=== PATIENT | male | born 1925 | race Caucasian/White ===

== ENCOUNTER 2016-06-26 08:39 | Inpatient (IN) | payer OTHER ==
[~2016-06-26] VITALS: Ht 172.7 cm; Wt 77.1 kg
--- NOTE | 2016-06-26 08:51 | NUR ---
89 Y/O MALE BIBA FROM HOME FOR EVAL OF L HIP/L LEG PAIN X 1 WEEK; WORSENING THIS AM. PER PT, HE FELL 1 WEEK AGO ON ICE OUTSIDE HOME. WAS ASSISTED UP BY FAMILY AND HAS BEEN AMBULATORY SINCE. FAMILY STATES "HE TOLD US HE WAS DOING BETTER". PT STATES HE GOT UP TO GO TO THE BATHROOM OVERNIGHT AND THE PAIN WAS WORSE; WAS ABLE TO GET TO/FROM BATHROOM AND THEN CALLED EMS; EMT'S FOUND PT IN BED. PT HAS SIGNIFICANT BRUISING TO ENTIRE L LEG, FROM HIP DOWN INTO THIGH AND AND INTO CALF. PT STATES HE HAS NO PAIN AT REST BUT ONLY IF HE ATTEMPTS TO MOVE. DENIES OTHER COMPLAINTS - DENIES STRIKING HEAD WITH FALL. AWAITING EVAL
--- NOTE | 2016-06-26 08:55 | ED MVC/FALL/TRAUMA COMPLAINT ---
History of Present Illness General Chief Complaint: Fall Stated Complaint: FALL ON ICE LAST WEEK- LEFT HIP PAIN Source: patient, family Exam Limitations: no limitations Allergies Coded Allergies: Penicillins (Intermediate, UNKNOWN 06/26/16) codeine (UNKNOWN 06/26/16) Triage Note: 89 Y/O MALE BIBA FROM HOME FOR EVAL OF L HIP/L LEG PAIN X 1 WEEK; WORSENING THIS AM. PER PT, HE FELL 1 WEEK AGO ON ICE OUTSIDE HOME. WAS ASSISTED UP BY FAMILY AND HAS BEEN AMBULATORY SINCE. FAMILY STATES "HE TOLD US HE WAS DOING BETTER". PT STATES HE GOT UP TO GO TO THE BATHROOM OVERNIGHT AND THE PAIN WAS WORSE; WAS ABLE TO GET TO/FROM BATHROOM AND THEN CALLED EMS; EMT'S FOUND PT IN BED. PT HAS SIGNIFICANT BRUISING TO ENTIRE L LEG, FROM HIP DOWN INTO THIGH AND AND INTO CALF. PT STATES HE HAS NO PAIN AT REST BUT ONLY IF HE ATTEMPTS TO MOVE. DENIES OTHER COMPLAINTS - DENIES STRIKING HEAD WITH FALL. AWAITING EVAL Triage Nurses Notes Reviewed? yes HPI: Patient is an 89-year-old male brought in by ambulance for evaluation of left hip pain. Patient slipped and fell approximately 1.5 weeks ago. Patient has been having pain to the left hip since then. Patient's pain was gradually improving then overnight he was getting out of bed to go the bathroom and pain significantly increased. Pain is moderate at rest, severe with movement. Patient has taken ibuprofen with mild improvement. Patient denies head impact, headache, loss of consciousness, back pain, chest pain, numbness. (EMILY MARTINEZ) Vital Signs & Intake/Output Vital Signs & Intake/Output Vital Signs Date Time Temp Pulse Resp B/P Pulse O2 O2 Flow FiO2 Ox Delivery Rate 06/26 1355 98 Room Air 06/26 1325 96.0 83 20 107/53 97 Room Air 06/26 1114 96.4 69 18 150/72 97 Room Air 06/26 0850 97 Room Air 06/26 0845 96.7 77 18 166/72 96 Room Air Reconcile Medications Alfuzosin HCl (Alfuzosin HCl ER) 10 MG TAB.ER.24H 1 TAB PO DAILY UNKNOWN ( Reported) Aspirin (Aspirin*) 81 MG TAB.CHEW 1 TAB PO DAILY HEART HEALTH (Reported) Atorvastatin Calcium 40 MG TABLET 1 TAB PO DAILY CHOLESTEROL (Reported) Metoprolol Succinate 25 MG TAB 1 TAB PO DAILY HEART (Reported) Warfarin Sodium 5 MG TABLET 1 TAB PO 1700 BLOOD THINNER (Reported) (HERMELINDA LIZ,BENJA Mendoza) Past History Travel History Traveled to [place] past 21 day No Medical History Any Pertinent Medical History? 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 No (EMILY MARTINEZ) Review of Systems Review of Systems Constitutional: Denies: chills, fever. Eyes: Reports: no symptoms. Ears, Nose, Throat, Mouth: Reports: no symptoms. Respiratory: Denies: short of breath. Cardiovascular: Denies: chest pain, syncope. Gastrointestinal/Abdominal: Denies: abdominal pain, nausea, vomiting. Genitourinary: Reports: no symptoms. Musculoskeletal: Reports: see HPI. Denies: neck pain. Skin: Reports: no symptoms. Neurological/Psychological: Denies: headache, numbness. (EMILY MARTINEZ) Physical Exam Physical Exam General Appearance: well developed/nourished, alert, awake Head: atraumatic, normal appearance Eyes: Bilateral: normal appearance, PERRL, EOMI. Ears, Nose, Throat, Mouth: hearing grossly normal, moist mucous membrane Neck: normal inspection, supple, full range of motion, no midline tenderness Respiratory: normal breath sounds, chest non-tender, no respiratory distress, lungs clear Cardiovascular: regular rate/rhythm Peripheral Pulses: 2+ dorsalis pedis (R), 2+ dorsalis pedis (L) Gastrointestinal: soft, non-tender Back: normal inspection, normal range of motion, no vertebral tenderness Extremities: HEMATOMA LEFT LATERAL HIP WITH TENDERNESS. mINIMAL ACTIVE FLEXION. Neurologic/Psych: awake, alert, oriented x 3, normal mood/affect, emergency management system director II-XII nml as tested Skin: warm/dry Core Measures ACS in differential dx? No Severe Sepsis Present: No Septic Shock Present: No (EMILY MARTINEZ) Progress Differential Diagnosis: aoritic dissection, abd injury, C/T/L spine injury, ext injury, ICH, pelvis injury, pnemothorax, spinal cord injury Diagnostic Imaging: Viewed by Me: Radiology Read, CT Scan. Discussed w/RAD: Radiology Read, CT Scan. Radiology Impression: PATIENT: LILLY JONAS PRESENT AGE: 89 PATIENT ACCOUNT NO: [id number] : [birth year] LOCATION: [facility] ORDERING PHYSICIAN: EMILY TOM SERVICE DATE: 06/26/16 EXAM TYPE: CAT - CT PELVIS WO IV CONTRAST EXAMINATION: CT PELVIS WITHOUT CONTRAST CLINICAL INFORMATION: 89-year-old male with severe left hip pain after fall. Evaluate for occult fracture. COMPARISON: Radiographs of the pelvis and left hip from 06/26/2016. CT imaging of the pelvis from 03/23/2010. TECHNIQUE: Helical scanning was performed with submillimeter collimation through the pelvis. Sagittal and coronal multiplanar 2-D reconstructions were obtained. DLP: 1020 mGy-cm FINDINGS: Bones appear diffusely osteoporotic. There is bulky osteophyte/ enthesophyte formation of the visualized lower thoracic spine, multilevel facet arthropathy and disc degeneration. At L4-L5, the disc bulge, facet hypertrophy and ligamentum flavum hypertrophy produce at least moderate central canal stenosis. Syndesmophyte formation is present at the lumbosacral junction and the sacroiliac joints are ankylosed, as well. No evidence of sacral fracture. Pelvic bones have normal alignment. Also, there is normal alignment at each femoroacetabular joint. Small marginal osteophytes are present at each hip. No evidence of femoral fracture or acute acetabular injury. Small bone island is present within the right femoral head. There are no suspicious osseous lesions. A hematoma of heterogeneous attenuation with surrounding soft tissue edema is present within the gluteus medius muscle, as well as in the tissue plane between the gluteus medius and brigid muscles, and overlying the greater trochanter. The hematoma measures up to a maximum of 11 cm AP and 7.5 cm transverse, and it measures at least 12 cm in craniocaudal dimension. This hematoma is probably related to a partial tear of the gluteus medius along its myotendinous junction. Otherwise, the gluteus medius and minimus muscles exhibit bilateral atrophy and partial fatty replacement. Atherosclerotic calcification of the visualized abdominal aorta and iliac and femoral arteries without aneurysm. Small right inguinal hernia contains fat and a trace amount of fluid. Large prostate gland, which protrudes into the bladder base, measures 4.8 x 4 x 5.4 cm. There is diverticulosis of the sigmoid colon without diverticulitis. There is diastases of rectus abdominis muscles at and above the level of the umbilicus. A very small fat-containing umbilical hernia is noted. IMPRESSION: 1. Large hematoma of the left gluteus medius muscle, which extends between the gluteus medius and brigid muscles and overlies the greater trochanter, measures approximately 11 x 7.5 x 12 cm. 2. No evidence of femoral fracture or acetabular injury. 3. Sigmoid colon diverticulosis without diverticulitis. DICTATED BY: LENA ADAMS MD DATE/TIME DICTATED:06/26/161053 ELECTRONIC DATA PROCESSING AUDITOR:DENNIS DATE/TIME TRANSCRIBED:06/26/161053 CONFIDENTIAL, DO NOT COPY WITHOUT APPROPRIATE AUTHORIZATION. <Electronically signed in Other Vendor System> SIGNED BY: LENA ADAMS MD 06/26/16 1112, PATIENT: LILLY JONAS PRESENT AGE: 89 PATIENT ACCOUNT NO: [id number] : [birth year] LOCATION: [facility] ORDERING PHYSICIAN: EMILY TOM SERVICE DATE: 06/26/16 EXAM TYPE: CAT - CT PELVIS WO IV CONTRAST EXAMINATION: CT PELVIS WITHOUT CONTRAST CLINICAL INFORMATION: 89-year-old male with severe left hip pain after fall. Evaluate for occult fracture. COMPARISON: Radiographs of the pelvis and left hip from 06/26/2016. CT imaging of the pelvis from 03/23/2010. TECHNIQUE: Helical scanning was performed with submillimeter collimation through the pelvis. Sagittal and coronal multiplanar 2-D reconstructions were obtained. DLP: 1020 mGy-cm FINDINGS: Bones appear diffusely osteoporotic. There is bulky osteophyte/ enthesophyte formation of the visualized lower thoracic spine, multilevel facet arthropathy and disc degeneration. At L4-L5, the disc bulge, facet hypertrophy and ligamentum flavum hypertrophy produce at least moderate central canal stenosis. Syndesmophyte formation is present at the lumbosacral junction and the sacroiliac joints are ankylosed, as well. No evidence of sacral fracture. Pelvic bones have normal alignment. Also, there is normal alignment at each femoroacetabular joint. Small marginal osteophytes are present at each hip. No evidence of femoral fracture or acute acetabular injury. Small bone island is present within the right femoral head. There are no suspicious osseous lesions. A hematoma of heterogeneous attenuation with surrounding soft tissue edema is present within the gluteus medius muscle, as well as in the tissue plane between the gluteus medius and brigid muscles, and overlying the greater trochanter. The hematoma measures up to a maximum of 11 cm AP and 7.5 cm transverse, and it measures at least 12 cm in craniocaudal dimension. This hematoma is probably related to a partial tear of the gluteus medius along its myotendinous junction. Otherwise, the gluteus medius and minimus muscles exhibit bilateral atrophy and partial fatty replacement. Atherosclerotic calcification of the visualized abdominal aorta and iliac and femoral arteries without aneurysm. Small right inguinal hernia contains fat and a trace amount of fluid. Large prostate gland, which protrudes into the bladder base, measures 4.8 x 4 x 5.4 cm. There is diverticulosis of the sigmoid colon without diverticulitis. There is diastases of rectus abdominis muscles at and above the level of the umbilicus. A very small fat-containing umbilical hernia is noted. IMPRESSION: 1. Large hematoma of the left gluteus medius muscle, which extends between the gluteus medius and brigid muscles and overlies the greater trochanter, measures approximately 11 x 7.5 x 12 cm. 2. No evidence of femoral fracture or acetabular injury. 3. Sigmoid colon diverticulosis without diverticulitis. DICTATED BY: LENA ADAMS MD DATE/TIME DICTATED:06/26/161053 ELECTRONIC DATA PROCESSING AUDITOR:DENNIS DATE/TIME TRANSCRIBED:06/26/161053 CONFIDENTIAL, DO NOT COPY WITHOUT APPROPRIATE AUTHORIZATION. <Electronically signed in Other Vendor System> SIGNED BY: LENA ADAMS MD 06/26/16 1112 (EMILY MARTINEZ) Plan of Care: Orders Procedure Date/time Status CBC WITHOUT DIFFERENTIAL 06/26 1800 Active TYPE & SCREEN (NOT X-MATCH) 06/[address] in observation 06/26 1312 Active PT Evaluate & Treat 06/26 1254 Active Pathway - chart 06/26 1254 Active House Staff 06/26 1254 Active Patient Data 06/26 1254 Active Code Status 06/26 1254 Active MISTAKE 06/26 1235 Active PT Evaluate & Treat 06/26 1129 Active PROTHROMBIN TIME 06/26 0906 Complete COMPREHENSIVE METABOLIC PANEL 06/26 0906 Complete CBC WITHOUT DIFFERENTIAL 06/26 905 Complete Intake & Output 06/26 0848 Active VTE Mechanical Prophylaxis 06/26 UNK Active Activity/Ambulation 06/26 UNK Active MRI-PELVIS WITHOUT ZEINAB 06/26 UNK Active MRI-LT HIP W/O ZEINAB 06/26 UNK Active Current Medications Sig/Sindy Start time Last Medication Dose Stop Time Status Admin Acetaminophen 650 MG Q6P PRN 06/26 1300 AC (Tylenol) Hydromorphone HCl 1 MG Q6P PRN 06/26 1300 AC (Dilaudid) Ibuprofen 600 MG Q6P PRN 06/26 1300 AC (Motrin) Laboratory Tests 06/26/16 1007: Anion Gap 8, Estimated GFR > 60, BUN/Creatinine Ratio 23.8, Glucose 100 H, Calcium 8.7, Total Bilirubin 1.6 H, AST 27, ALT 43, Alkaline Phosphatase 71, Total Protein 6.9, Albumin 3.7, Globulin 3.2, Albumin/Globulin Ratio 1.2, PT 36.5 H, INR 3.52 H, CBC w Diff NO MAN DIFF REQ, RBC 3.21 L, MCV 93.5, MCH 30.8, RDW 15.4 H, MPV 8.2, Gran % 71.4, Lymphocytes % 17.8 L, Monocytes % 8.9, Eosinophils % 1.5, Basophils % 0.4, Absolute Granulocytes 5.5, Absolute Lymphocytes 1.4, Absolute Monocytes 0.7 H, Absolute Eosinophils 0.1, Absolute Basophils 0, PUBS MCHC 33.0 06/26/2016 10:29:46 AM: Patient reevaluated, no significant improvement in pain after 2 mg of IV morphine. Attempted to sit patient up in the stretcher, pain is severe with any flexion at the left hip. CT scan of the pelvis ordered to rule out occult fracture. Discussed with Dr. Salvador. 06/26/2016 12:31:29 PM: Patient comfortable at rest. Thigh remains soft, vital signs stable. Again attempted to sit patient up and ambulate patient. Patient able to sit up to 60. Attempted to stand patient, patient unable to pivot off of stretcher secondary to severe pain. Discussed with Dr. Aguiar to bring patient in for inpatient observation (EMILY MARTINEZ) Departure Departure Time of Disposition: 1250 Disposition: STILL A PATIENT Condition: Stable Clinical Impression Primary Impression: Hip hematoma, left Secondary Impressions: Strain of gluteus medius of left lower extremity, Supratherapeutic INR Referrals: RUTH LIZ,MATT Cortez (PCP/Family) Departure Forms: Customer Survey General Discharge Information Observation Note Spoke With: ROLANDO AGUIAR M.D Physician Advisor Notified: MILA LIZ,ADINA [facility] Patient In: Non-ED OBS Care Area Rationale for Observation: My rational for observation is as follows: Pain control requiring IV medication, physical therapy consultation, serial complete blood cell counts. If any further clinical signs of worsening bleeding or CBC is significantly trending down than orthopedic versus IR consultation, FFP and vitamin K. (EMILY MARTINEZ) PA/SANITATION TECHNICIAN Co-Sign Statement Statement: ED Attending supervision documentation- [X] I saw and evaluated the patient. I have also reviewed all the pertinent lab results and diagnostic results. I agree with the findings and the plan of care as documented in the PA's/SANITATION TECHNICIAN's documentation. [] I have reviewed the ED Record and agree with the PA's/SANITATION TECHNICIAN's documentation. [] Additions or exceptions (if any) to the PAs/SANITATION TECHNICIAN's note and plan are summarized below: [] (HERMELINDA LIZ,BENJA Mendoza)
--- NOTE | 2016-06-26 08:55 | NUR ---
NEGRO ODEN EVAL
[2016-06-26] MEDS ORDERED: ASPIRIN81 M4 PO (09:18)
[2016-06-26] MEDS ORDERED: ALFUZOSIN HCL E10 MG PO (09:18)
[2016-06-26] MEDS ORDERED: METOPROLOL SUCC25 M1 PO (09:19)
[2016-06-26] MEDS ORDERED: WARFARIN SODIUM5 M1 PO (09:19)
[2016-06-26] MEDS ORDERED: ATORVASTATIN CA40 M1 PO (09:19)
--- NOTE | 2016-06-26 09:33 | NUR ---
MED WITH MORPHINE PER JUL. PER NEGRO Miranda, PT HAS RECEIVED MEDICATION IN THE PAST, DOCUMENTED IN HISTORY. PT STATES CODEINE HAS MADE HIM "HALLUCINATE" BUT DENIES OTHER KNOWN ALLERGY. AWAITING XRAY
--- NOTE | 2016-06-26 09:35 | NUR ---
DR SHEN IN FOR EVAL
--- NOTE | 2016-06-26 09:44 | NUR ---
TO RADIOLOGY VIA STRETCHER
--- NOTE | 2016-06-26 09:56 | NUR ---
BACK FROM RADIOLOGY
[2016-06-26 10:16] LABS: ABSOLUTE BASOPHIL COUNT 0 /CUMM (0.0-0.2); ABSOLUTE EOSINOPHIL COUNT 0.1 /CUMM (0.0-0.7); ABSOLUTE GRANULOCYTE CT 5.5 /CUMM (1.4-6.5); ABSOLUTE LYMPH COUNT 1.4 /CUMM (1.2-3.4); ABSOLUTE MONOCYTE COUNT 0.7 /CUMM (0.10-0.60); BASOPHIL % 0.4 % (0.0-2.0); EOSINOPHIL % 1.5 % (0-5); GRANULOCYTE % 71.4 % (42.2-75.2); MEAN CORPUSCULAR HGB 30.8 PG (27.0-31.0); MEAN CORPUSCULAR VOLUME 93.5 FL (80.0-94.0); MEAN PLATELET VOLUME 8.2 FL (7.4-10.4); PLATELET COUNT 153 /CUMM (130-400); RBC DISTRIBUTION WIDTH 15.4 % (11.5-14.5); RED BLOOD CELL CT 3.21 /CUMM (4.70-6.10); WHITE BLOOD CELL COUNT 7.7 /CUMM (4.8-10.8)
--- NOTE | 2016-06-26 10:22 | RADIOLOGY REPORT ---
EXAMINATION: XR HIP, LEFT CLINICAL INFORMATION: Left hip pain and bruising after fall. COMPARISON: None TECHNIQUE: Pelvis, AP view. Left hip, AP and lateral views. FINDINGS: Osseous pelvic ring is intact. There is transitional lumbosacral anatomy with partial lumbarization of S1. The articular cartilage space of each hip is maintained. There is enthesophyte formation in multiple locations, including ischial tuberosities and femoral trochanters. The left femoral head is well-positioned within the intact acetabulum. No evidence of acute femoral fracture, subluxation or focal soft tissue swelling. Peripheral vessels are calcified. IMPRESSION: No acute osseous injury at the left hip.
[2016-06-26 10:23] LABS: PT 36.5 SEC (9.4-12.5)
--- NOTE | 2016-06-26 11:02 | NUR ---
TO CT SCAN VIA STRETCHER
--- NOTE | 2016-06-26 11:12 | CT SCAN REPORT ---
EXAMINATION: CT PELVIS WITHOUT CONTRAST CLINICAL INFORMATION: 89-year-old male with severe left hip pain after fall. Evaluate for occult fracture. COMPARISON: Radiographs of the pelvis and left hip from 06/26/2016. CT imaging of the pelvis from 03/23/2010. TECHNIQUE: Helical scanning was performed with submillimeter collimation through the pelvis. Sagittal and coronal multiplanar 2-D reconstructions were obtained. DLP: 1020 mGy-cm FINDINGS: Bones appear diffusely osteoporotic. There is bulky osteophyte/enthesophyte formation of the visualized lower thoracic spine, multilevel facet arthropathy and disc degeneration. At L4-L5, the disc bulge, facet hypertrophy and ligamentum flavum hypertrophy produce at least moderate central canal stenosis. Syndesmophyte formation is present at the lumbosacral junction and the sacroiliac joints are ankylosed, as well. No evidence of sacral fracture. Pelvic bones have normal alignment. Also, there is normal alignment at each femoroacetabular joint. Small marginal osteophytes are present at each hip. No evidence of femoral fracture or acute acetabular injury. Small bone island is present within the right femoral head. There are no suspicious osseous lesions. A hematoma of heterogeneous attenuation with surrounding soft tissue edema is present within the gluteus medius muscle, as well as in the tissue plane between the gluteus medius and brigid muscles, and overlying the greater trochanter. The hematoma measures up to a maximum of 11 cm AP and 7.5 cm transverse, and it measures at least 12 cm in craniocaudal dimension. This hematoma is probably related to a partial tear of the gluteus medius along its myotendinous junction. Otherwise, the gluteus medius and minimus muscles exhibit bilateral atrophy and partial fatty replacement. Atherosclerotic calcification of the visualized abdominal aorta and iliac and femoral arteries without aneurysm. Small right inguinal hernia contains fat and a trace amount of fluid. Large prostate gland, which protrudes into the bladder base, measures 4.8 x 4 x 5.4 cm. There is diverticulosis of the sigmoid colon without diverticulitis. There is diastases of rectus abdominis muscles at and above the level of the umbilicus. A very small fat-containing umbilical hernia is noted. IMPRESSION: 1. Large hematoma of the left gluteus medius muscle, which extends between the gluteus medius and brigid muscles and overlies the greater trochanter, measures approximately 11 x 7.5 x 12 cm. 2. No evidence of femoral fracture or acetabular injury. 3. Sigmoid colon diverticulosis without diverticulitis.
--- NOTE | 2016-06-26 11:28 | NUR ---
PT MEDICATED WITH ADDITIONAL DOSE OF MORPHINE AND IV OFRIMEV PER ORDERS
--- NOTE | 2016-06-26 12:16 | NUR ---
NEGRO BROWN INTO DISCUSS POC - ANTICIPATE PHYSICAL THERAPY AND ADMISSION
--- NOTE | 2016-06-26 12:51 | History & Physical ---
JENNIE EVANS MD 06/26/16 1251: General Information and HPI MD Statement: I have seen and personally examined LILLY JONAS and documented this H&P. The patient is a 89 year old M who presented with a patient stated chief complaint of [fall and hip pain]. Source of Information: patient, family, old records History of Present Illness: This is an 89-year-old male with a past medical history of hypertension, hyperlipidemia, permanent atrial fibrillation currently on Coumadin therapy, status post coronary artery bypass and S/p pacemaker placement presents to the emergency department for the 4 month back. The patient's eyes and then was back on his feet by his son. He was outside checking his meal when he slipped on the ice and landed on his left hip. The patient did not hit his head. The patient denied any chest pain, palpitations, shortness of prior To the fall. At baseline the patient ambulates with a cane and lives alone at home he gets his help from his family which includes his 5 children who help him with his daily activities including grocery and the daily nutrition. The patient has been tolerating the pain on his hip very well and has not been taking any medications except for [id number] ibuprofen as needed. Today in the morning his pain exacerbated and he was not able to tolerate and decided to come to the ER for further evaluation. In the ER the patient had an hip x-ray along with the CAT scan which showed a hematoma in the left pelvic area. And denied any bruising, or overt bleeding of being on Coumadin. 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 Home Who Do You Live With? spouse Services at Home: None Primary Language: [place] R[place] Smoking Status: Never Smoked ETOH Use: occasional use Illicit Drug Use: denies illicit drug use Living Will? yes Review of Systems Review of Systems Constitutional: Reports: see HPI. Cardiovascular: Denies: see HPI, chest pain, edema, orthopena. Respiratory: Denies: cough, hemoptysis, orthopnea, short of breath, sputum production. GI: Denies: bloating, constipation, diarrhea, distention, bowel incontinence. Genitourinary: Denies: dysuria, frequency, hematuria, hesitation. Musculoskeletal: Reports: joint pain. Denies: back pain, gout. Skin: Denies: dryness, erythema, jaundice, lesions, lymphangitis. Neurological/Psychological: Denies: depressed, emotional problems, numbness, paresthesia, pre-existing deficit. Exam & Diagnostic Data Last 24 Hrs of Vital Signs/I&O Vital Signs Date Time Temp Pulse Resp B/P Pulse O2 O2 Flow FiO2 Ox Delivery Rate 06/26 1355 98 Room Air 06/26 1325 96.0 83 20 107/53 97 Room Air 06/26 1114 96.4 69 18 150/72 97 Room Air 06/26 0850 97 Room Air 06/26 0845 96.7 77 18 166/72 96 Room Air Intake & Output 06/26 1600 06/26 0800 06/26 0000 Intake Total Output Total Balance Patient 170 lb Weight Physical Exam General Appearance Alert, Oriented X3, Cooperative Skin No Rashes, No Breakdown HEENT Atraumatic, PERRLA Neck Supple, No JVD, No thryomegaly Lymphatic Axillary nl, Cervical nl Cardiovascular Normal S1, Normal S2, No Murmurs Lungs Clear to Auscultation, Normal Air Movement Abdomen Soft, No Tenderness, No Hepatospenomegaly Neurological Normal Speech, Strength at 5/5 X4 Ext, Normal Tone, Sensation Intact Extremities left hip swelling Last 24 Hrs of Labs/Nilesh: Laboratory Tests 06/26/16 1007: Anion Gap 8, Estimated GFR > 60, BUN/Creatinine Ratio 23.8, Glucose 100 H, Calcium 8.7, Total Bilirubin 1.6 H, AST 27, ALT 43, Alkaline Phosphatase 71, Total Protein 6.9, Albumin 3.7, Globulin 3.2, Albumin/Globulin Ratio 1.2, PT 36.5 H, INR 3.52 H, CBC w Diff NO MAN DIFF REQ, RBC 3.21 L, MCV 93.5, MCH 30.8, RDW 15.4 H, MPV 8.2, Gran % 71.4, Lymphocytes % 17.8 L, Monocytes % 8.9, Eosinophils % 1.5, Basophils % 0.4, Absolute Granulocytes 5.5, Absolute Lymphocytes 1.4, Absolute Monocytes 0.7 H, Absolute Eosinophils 0.1, Absolute Basophils 0, PUBS MCHC 33.0 Diagnostic Data CXR Results not done Assessment/Plan Assessment: This is an 89-year-old male with a past medical history of hypertension hyperlipidemia coronary artery bypass who presented to the [facility] after having a mechanical fall and ended up having a hematoma on his left hip. Vitals at the time of admission showed a blood pressure of 110/80, respiration rate of 18, saturation of 98% on home Labs shows Hemoglobin of 9.9 and him the crit of 30, Normal basic electrolyte panel INR 3.52 The EKG showed normal sinus rhythm Pelvic CT shows: 1. Large hematoma of the left gluteus medius muscle, which extends between the gluteus medius and brigid muscles and overlies the greater trochanter, measures approximately 11 x 7.5 x 12 cm. 2. No evidence of femoral fracture or acetabular injury. 3. Sigmoid colon diverticulosis without diverticulitis. Assessments Left hip hematoma no underlying fractures seen on the CAT scan Mechanical fall History of hypertension and History of hyperlipidemia Plan Admit to general medicine floor Repeat CBC every 12 with a next one being at 6 PM Blood for type and screen Jamey the INR in the morning and hold Coumadin for now Do MRI of the hip and the pelvis to look for any underlying fracture missed on the CAT scan If fracture positive call orthopedics Physical therapy Pain control The patient might need short-term rehabilitation Patient is full code DVT prophylaxis but currently INR is supratherapeutic As Ranked By This Provider Problem List: 1. Supratherapeutic INR 2. Hip hematoma, left 3. Strain of gluteus medius of left lower extremity Core Measures/Miscellaneous Acute Coronary Syndrome ACS Diagnosis: No Cerebrovascular Accident CVA/TIA Diagnosis: No Congestive Heart Failure CHF Diagnosis: No Venous Thromboembolism VTE Risk Factors: Acute medical illness, Age > 40 VTE Prophylaxis Ordered Inpt: Pharm- Warfarin No Mech VTE prophylaxis d/t: No contraindications No VTE Pharm Prophylaxis d/t: No contraindications VTE Diagnosis: No VTE Type: NONE VTE Confirmed by (Test): NONE Severe Sepsis Severe Sepsis Present: No Septic Shock Septic Shock Present: No Miscellaneous Documentation Attending Case Discussed With: PIPPA HODGE MD Primary Care Physician: MATT MIRANDA MD Patient sees these Specialists none Level of Patient Care: General Medicine PIPPA HODGE MD 06/26/162118: General Information and HPI Allergies/Medications Home Med list Acetaminophen (Tylenol) 325 MG TABLET 650 MG PO Q6P PRN PAIN SCALE 1-3 (MILD) Alfuzosin HCl (Alfuzosin HCl ER) 10 MG TAB.ER.24H 1 TAB PO DAILY UNKNOWN ( Reported) Aspirin (Aspirin*) 81 MG TAB.CHEW 1 TAB PO DAILY HEART HEALTH (Reported) Atorvastatin Calcium 40 MG TABLET 1 TAB PO DAILY CHOLESTEROL (Reported) Docusate Sodium (Colace) 100 MG CAPSULE 1 CAP PO BID PRN constipation Ferrous Sulfate 325 MG (65 MG IRON) TABLET 1 TAB PO DAILY supllement Metoprolol Succinate 25 MG TAB 1 TAB PO DAILY HEART (Reported) Warfarin Sodium 5 MG TABLET 1 TAB PO 1700 BLOOD THINNER (Reported) start taking coumadin after checking INR and when INR less than 2. Attending MD Review Statement Attending Statement Attending MD Statement: examined this patient, discuss w/resident/PA/WASHER AND CRUSHER TENDER, agreed w/resident/PA/WASHER AND CRUSHER TENDER, discussed with family, reviewed EMR data (avail), reviewed images, amended to note Attending Assessment/Plan: The patient is an 89 yo male with h/o atrial fibrillation (on Coumadin), s/p pacemaker, h/o CAD (s/p CABG), HTN, and HL who presented in the ED today with severe left hip pain. He stated that he had fallen on the ice approximately 1 week prior and in last 2 days began experiencing increased left hip/buttock pain to the point where he could not ambulate. In the ED was noted to have a gluteal hematoma. CT showed no fracture, however large hematoma (?11 cm). He stated that his INR is usually therapeutic and was 2.1 on last check (3.5 on admission today ). He denied any dyspnea, chest pain, palpitations, or other symptoms. His H/H had dropped significantly since last Scott bloodwork. Physical Exam: S: T 96.4, P 77, R 18, BP160/72, PO 96% RA HEENT: eyes- PERRLA, EOMI layne- moist mucosa w/o lesions Neck: no adenopathy, bruits or JVD Chest: clear Cor: RRR, nl S1, S2 w/o murm Abd: BS+, soft, NT,-masses or HSM Ext: + large left gluteal/buttock hematoma extending to posterior and lateral thigh with tenderness and decreased ROM left hip, pain on rotation. No peripheral edema, pulses 1+ Neuro: alert & oriented x 3, non-focal exam Labs/Tests- as above. Impression/Plan: #Left Hip Pain- s/p fall approximately [address] shows large gluteal hematoma w/o fracture. Would still have some concern regarding potential fracture of pelvis or hip. Unable to do MRI easily due to pacemaker (patient does not have card with specifics- was placed at [facility]: Dr. Zhang is his Senior Speech Pathologist). Plan: Admit as observation. Treat pain using pain pathway. Bone scan to exclude fracture. PT consult- suspect will need rehab. May consider evacuation of hematoma if increasing. #Acute Blood Loss Anemia- H/H dropped significantly from last Scott value of 14.5/43.8 (now 9.9/30). Concern regarding persistent bleeding. Plan: Follow-up H/H later today. If Hgb below 8 will need transfusion. #Coagulopathy- as above INR slightly supratherapeutic. Plan: Will follow H/H as above and see if persistent bleeding will reverse. No coumadin at present. #CAD/Atrial Fibrillation/S/P Pacer-HR normal and on exam regular. No ischemic symptoms. Plan: Will obtain 12 lead EKG on floor. Follow BP/pulse. Continue Metoprolol. #HL- on Atorvastatin. Plan: Continue Atorvastatin.
--- NOTE | 2016-06-26 13:02 | NUR ---
HOUSE STAFF INTO EVAL
--- NOTE | 2016-06-26 13:49 | NUR ---
DR HOGDE AT THE BEDSIDE
--- NOTE | 2016-06-26 13:59 | NUR ---
PT ADMITTED TO ROOM 210-1
--- NOTE | 2016-06-26 14:06 | NUR ---
REPORT GIVEN TO NURSE ON 2N TRANSPORT CALLED
--- NOTE | 2016-06-26 14:09 | NUR ---
PT DENIES PAIN AT THIS TIME REMAINS AWAKE, ALERT AND CONVERSANT WITHOUT COMPLAINTS. AWAITING TRANSPORT TO . FAMILY AT THE BEDSIDE
[2016-06-26 16:12] VITALS: BP 120/54
[2016-06-26 18:18] LABS: ABSOLUTE BASOPHIL COUNT 0 /CUMM (0.0-0.2); ABSOLUTE EOSINOPHIL COUNT 0.1 /CUMM (0.0-0.7); ABSOLUTE GRANULOCYTE CT 4.4 /CUMM (1.4-6.5); ABSOLUTE LYMPH COUNT 1.2 /CUMM (1.2-3.4); ABSOLUTE MONOCYTE COUNT 0.7 /CUMM (0.10-0.60); BASOPHIL % 0.4 % (0.0-2.0); EOSINOPHIL % 1.8 % (0-5); GRANULOCYTE % 67.7 % (42.2-75.2); HEMATOCRIT 28.5 % (42-52); MEAN CORPUSCULAR HGB 30.9 PG (27.0-31.0); MEAN CORPUSCULAR HGB CONC 33.1 G/DL (33.0-37.0); MEAN CORPUSCULAR VOLUME 93.3 FL (80.0-94.0); MEAN PLATELET VOLUME 8.5 FL (7.4-10.4); PLATELET COUNT 153 /CUMM (130-400); RBC DISTRIBUTION WIDTH 15.4 % (11.5-14.5); RED BLOOD CELL CT 3.05 /CUMM (4.70-6.10); WHITE BLOOD CELL COUNT 6.5 /CUMM (4.8-10.8)
--- NOTE | 2016-06-26 18:18 | Admission Certification ---
Admission Certification Certification Statement - As attending physician, I certify that at the time of - admission, based on clinical presentation, severity of - symptoms, need for further diagnostic testing and - therapeutic interventions, and risk of adverse outcomes - without in-hospital treatment, in my clinical assessment, - this patient requires an acute hospital stay for a minimum - of two nights or longer. I have also considered psychsocial - factors such as support system, advanced age, financial - issues, cognitive issues, and failed out-patient treatments, - past re-admission history, safety of patient, and lack of - compliance as applicable. Specific rationale supporting this admission is: Patient was admitted with severe left hip pain post fall with large gluteal hematoma on CT. INR supratherapeutic. Also drop in H/H. Need to monitor H/H, PT consult, bone scan to exclude fracture.
--- NOTE | 2016-06-26 20:49 | Discharge Summary ---
See Addendum Visit Information Visit Dates Admission Date: 06/26/16 Discharge Date: 07/01/16 Hospital Course Course Attending Physician: PIPPA HODGE MD Primary Care Physician: MATT MIRANDA MD Hospital Course: 89-year-old male with a past medical history of hypertension hyperlipidemia coronary artery bypass,afib on coumadin and subsequently on S/p pacemaker placement, who presented to the [facility] after having a mechanical fall and ended up having a hematoma on his left hip. Vitals at the time of admission showed a blood pressure of 110/80, respiration rate of 18, saturation of 98% on home Labs shows Hemoglobin of 9.9 and him the crit of 30, Normal basic electrolyte panel INR 3.52 The EKG showed normal sinus rhythm Pelvic CT shows: 1. Large hematoma of the left gluteus medius muscle, which extends between the gluteus medius and brigid muscles and overlies the greater trochanter, measures approximately 11 x 7.5 x 12 cm. 2. No evidence of femoral fracture or acetabular injury. 3. Sigmoid colon diverticulosis without diverticulitis. The patient was treated for the following problems in the hospital 1.Acute Hematoma of the left gluteus muscle 2.Mechanical fall 3.H/O Hypertension 4.H/O CAD s/p CABG 5.Pacemker placement s/p atrial fibrillation 6. Acute hospital-induced delirium 7.Positive Lyme titre He is serial CBC were performed and showed No acute decrease in the H/H. The patient did not receive any dose of Coumadin while in the hospital while aspirin was continued The patient needs to be off Coumadin 2 07/03/2016(this was discussed in detail with the patient's project control officer Dr. Zhang as well who agrees with the plan) The patient was instructed to check the INR on 07/03/2016 and is less ledy 2 start taking the Coumadin therapy and follow-up with his primary care physician and project control officer in 1 week The patient had one episode of acute delirium while being in the hospital on his third day of admission. The patient was put on safety net bed and required one- to-one sitter for unsafe ambulation. All the acute triggers for the delirium were ruled out including urinalysis B12 TSH Lyme and RD OK serology. These results the Lyme titer came back positive to 5.68 .Treatment for Neuro lyme was defreered considering the patinet could have false positive results.the results of the Western Blot still pending. No treatment is recommended at this point as per the ID .All results were negative. The patient plan of care and discharge was then changed to 24-hour funeral home assistant rather than STIR and hence was instructed to start on Rozerem 8 mg at bedtime as needed and trazodone 12.5 mg every 6 as needed. The patient has a good family support and hence would be discharged home with 24 -hour home care. Western Blot lyme titre has been sent and is pending. This will need to be f/u. Allergies: Coded Allergies: Penicillins (Intermediate, UNKNOWN 06/26/16) codeine (UNKNOWN 06/26/16) Pertinent Lab Results: Laboratory Tests 06/26 06/26 1747 1007 Chemistry Sodium (137 - 145 mmol/L) 138 Potassium (3.5 - 5.1 mmol/L) 4.3 Chloride (98 - 107 mmol/L) 102 Carbon Dioxide (22 - 30 mmol/L) 28 Anion Gap (5 - 16) 8 BUN (9 - 20 mg/dL) 19 Creatinine (0.7 - 1.2 mg/dL) 0.8 Estimated GFR (>60 ml/min) > 60 BUN/Creatinine Ratio (7 - 25 %) 23.8 Glucose (65 - 99 mg/dL) 100 H Calcium (8.4 - 10.2 mg/dL) 8.7 Total Bilirubin (0.2 - 1.3 mg/dL) 1.6 H AST (17 - 59 U/L) 27 ALT (21 - 72 U/L) 43 Alkaline Phosphatase (< 127 U/L) 71 Total Protein (6.3 - 8.2 g/dL) 6.9 Albumin (3.5 - 5.0 g/dL) 3.7 Globulin (1.9 - 4.2 gm/dL) 3.2 Albumin/Globulin Ratio (1.1 - 2.2 %) 1.2 Coagulation PT (9.4 - 12.5 SEC) 36.5 H INR (0.90 - 1.17) 3.52 H Hematology CBC w Diff NO MAN DIFF REQ NO MAN DIFF REQ WBC (4.8 - 10.8 /CUMM) 6.5 7.7 RBC (4.70 - 6.10 /CUMM) 3.05 L 3.21 L Hgb (14.0 - 18.0 G/DL) 9.4 L 9.9 L Hct (42 - 52 %) 28.5 L 30.0 L MCV (80.0 - 94.0 FL) 93.3 93.5 MCH (27.0 - 31.0 PG) 30.9 30.8 RDW (11.5 - 14.5 %) 15.4 H 15.4 H Plt Count (130 - 400 /CUMM) 153 153 MPV (7.4 - 10.4 FL) 8.5 8.2 Gran % (42.2 - 75.2 %) 67.7 71.4 Lymphocytes % (20.5 - 51.1 %) 18.8 L 17.8 L Monocytes % (1.7 - 9.3 %) 11.3 H 8.9 Eosinophils % (0 - 5 %) 1.8 1.5 Basophils % (0.0 - 2.0 %) 0.4 0.4 Absolute Granulocytes (1.4 - 6.5 /CUMM) 4.4 5.5 Absolute Lymphocytes (1.2 - 3.4 /CUMM) 1.2 1.4 Absolute Monocytes (0.10 - 0.60 /CUMM) 0.7 H 0.7 H Absolute Eosinophils (0.0 - 0.7 /CUMM) 0.1 0.1 Absolute Basophils (0.0 - 0.2 /CUMM) 0 0 PUBS MCHC (33.0 - 37.0 G/DL) 33.1 33.0 Disposition Summary Disposition Principal Diagnosis: Mechaincal fall Additional Diagnosis: Acute hemotoma of the Left gluteus muscle H/O CABG h/O AFIB Acute delirium Discharge Disposition: home health services Discharge Instructions General Discharge Information Code Status: Full Code Patient's Diet: As tolerated Patient's Activity: As tolerated Follow-Up Instructions/Appts: F/u with PCP in1 week of discharge Medications at Discharge Discharge Medications: Continue taking these medications: Alfuzosin HCl (Alfuzosin HCl ER) 10 MG TAB.ER.24H 1 Tablet ORAL DAILY Qty = 90 Comments: NOT GIVEN IN HOSPITAL Aspirin (Aspirin*) 81 MG TAB.CHEW 1 Tablet ORAL DAILY Comments: NOT GIVEN IN HOSPITAL Atorvastatin Calcium (Atorvastatin Calcium) 40 MG TABLET 1 Tablet ORAL DAILY Comments: Last Taken:07/02/16 Time:0930AM Metoprolol Succinate (Metoprolol Succinate) 25 MG TAB 1 Tablet ORAL DAILY Qty = 90 Comments: Last Taken:07/02/16 Time:0930AM Warfarin Sodium (Warfarin Sodium) 5 MG TABLET 1 Tablet ORAL 5 PM Qty = 90 Instructions: start taking coumadin after checking INR and when INR less than 2. Comments: NOT GIVEN IN HOSPITAL Start taking the following new medications: Acetaminophen (Tylenol) 325 MG TABLET 650 Milligram ORAL EVERY SIX HOURS NEEDED as needed for PAIN SCALE 1-3 ( MILD) Qty = 30 No Refills Comments: Last Taken:06/28/16 Time:1130AM Trazodone HCl (Trazodone HCl) 50 MG TABLET 12.5 Milligram ORAL EVERY 6 HOURS NEEDED as needed for ANXIETY Qty = 30 No Refills Comments: Last Taken:07/01/16 Time:MIDNIGHT Ramelteon (Rozerem) 8 MG TABLET 8 Milligram ORAL AT BEDTIME as needed for sleep Qty = 30 No Refills Comments: Last Taken:07/01/16 Time:930PM Ferrous Sulfate (Ferrous Sulfate) 325 MG (65 MG IRON) TABLET 1 Tablet ORAL DAILY Qty = 30 No Refills Comments: Last Taken:07/02/16 Time:0930AM Docusate Sodium (Colace) 100 MG CAPSULE 1 Capsule ORAL TWICE DAILY as needed for constipation Qty = 30 No Refills Comments: Last Taken:06/28/16 Time:1130AM Copies To: RUTH LIZ,MATT Cortez Attending MD Review Statement Documenting Attending: PIPPA HODGE MD Other Findings: The patient was seen and discussed with house staff, case management and family. Will discharge home today with 24 hour care. Mental status was significantly improved at time of discharge. Await Lyme Western Blot.
[2016-06-26 23:41] VITALS: BP 134/80
--- NOTE | 2016-06-27 04:59 | PN- Housestaff ---
NATHAN LIZ,JENNIE 06/27/16 0459: Subjective Follow-up For: Left hip hematoma Complaints: no complaints Subjective: Patient was annoyed in the morning feels as if he is being"imprisonment". Still complains of pain in the left leg Review of Systems Constitutional: Reports: see HPI. Objective Last 24 Hrs of Vital Signs/I&O Vital Signs Date Time Temp Pulse Resp B/P Pulse O2 O2 Flow FiO2 Ox Delivery Rate 06/27 0812 98.3 100 20 140/82 95 Room Air 06/26 2341 97.6 99 19 134/80 93 Room Air 06/26 1612 97.8 75 20 120/54 97 06/26 1355 98 Room Air 06/26 1325 96.0 83 20 107/53 97 Room Air 06/26 1114 96.4 69 18 150/72 97 Room Air 06/26 0850 97 Room Air 06/26 0845 96.7 77 18 166/72 96 Room Air Intake & Output 06/27 1600 06/27 0800 06/27 0000 Intake Total Output Total 350 Balance -350 Output, Urine 350 Physical Exam General Appearance: Alert, Oriented X3 Skin: No Rashes, No Breakdown HEENT: Atraumatic, PERRLA Neck: No thryomegaly Cardiovascular: Normal S1, Normal S2, No Murmurs Lungs: Clear to Auscultation, Normal Air Movement Extremities: left lateral leg swelling Current Medications: Current Medications Sig/Sindy Start time Last Medication Dose Route Stop Time Status Admin Acetaminophen 650 MG Q6P PRN 06/26 1300 AC PO Acetaminophen 0 .STK-MED ONE 06/26 1126 DC IV Acetaminophen 0 .STK-MED ONE 06/26 1114 DC IV Acetaminophen 1,000 MG ONCE ONE 06/26 1030 DC 06/26 N/A 1 UNIT IV 06/26 1044 1128 Atorvastatin Calcium 40 MG DAILY 06/27 1000 AC PO Hydromorphone HCl 1 MG Q6P PRN 06/26 1300 AC 06/27 IV 0029 Ibuprofen 600 MG Q6P PRN 06/26 1300 AC PO Melatonin 3 MG AT BEDTIME 06/26 2200 AC 06/26 PO 205 Metoprolol Succinate 25 MG DAILY 06/27 1000 AC PO Morphine Sulfate 0 .STK-MED ONE 06/26 1115 DC .ROUTE Morphine Sulfate 2 MG ONCE ONE 06/26 1030 DC 06/26 IV 06/26 1031 1127 Morphine Sulfate 0 .STK-MED ONE 06/26 0828 DC .ROUTE Morphine Sulfate 2 MG ONCE ONE 06/26 0815 DC 06/26 IV 06/26 0916 0932 Last 24 Hrs of Lab/Nilesh Results Last 24 Hrs of Labs/Mics: Laboratory Tests 06/27/16 0638: PT 30.1 H, INR 2.90 H, CBC w Diff NO MAN DIFF REQ, RBC 3.05 L, MCV 92.9, MCH 31.5 H, RDW 15.5 H, MPV 9.0, Gran % 69.3, Lymphocytes % 18.8 L, Monocytes % 10.2 H, Eosinophils % 1.5, Basophils % 0.2, Absolute Granulocytes 5.1, Absolute Lymphocytes 1.4, Absolute Monocytes 0.8 H, Absolute Eosinophils 0.1, Absolute Basophils 0, PUBS MCHC 34.0 06/26/16 1747: CBC w Diff NO MAN DIFF REQ, RBC 3.05 L, MCV 93.3, MCH 30.9, RDW 15.4 H, MPV 8.5, Gran % 67.7, Lymphocytes % 18.8 L, Monocytes % 11.3 H, Eosinophils % 1.8, Basophils % 0.4, Absolute Granulocytes 4.4, Absolute Lymphocytes 1.2, Absolute Monocytes 0.7 H, Absolute Eosinophils 0.1, Absolute Basophils 0, PUBS MCHC 33.1 06/26/16 1007: Anion Gap 8, Estimated GFR > 60, BUN/Creatinine Ratio 23.8, Glucose 100 H, Calcium 8.7, Total Bilirubin 1.6 H, AST 27, ALT 43, Alkaline Phosphatase 71, Total Protein 6.9, Albumin 3.7, Globulin 3.2, Albumin/Globulin Ratio 1.2, PT 36.5 H, INR 3.52 H, CBC w Diff NO MAN DIFF REQ, RBC 3.21 L, MCV 93.5, MCH 30.8, RDW 15.4 H, MPV 8.2, Gran % 71.4, Lymphocytes % 17.8 L, Monocytes % 8.9, Eosinophils % 1.5, Basophils % 0.4, Absolute Granulocytes 5.5, Absolute Lymphocytes 1.4, Absolute Monocytes 0.7 H, Absolute Eosinophils 0.1, Absolute Basophils 0, PUBS MCHC 33.0 Assessment/Plan Assessment: This is an 89-year-old male with a past medical history of hypertension, hyperlipidemia, status post CABG, atrial fibrillation currently on Coumadin therapy who presented to the [facility] status post mechanical fall and which ended up having left leg hematoma Assessment 1. Mechanical fall status post left leg gluteus hematoma 2. History of hypertension 3. History of coronary artery disease status post CABG 4.Suoprattherapeutic INR Plan: Will c/w pain control as needed DC DILAUDID as its worseing his Confusion PO Tramadol for pain control PT eval for final disposition Refusing Nuclear Scan for thge suspicion of FX C/w holding Coumadin Possible discharge later today depending on the results of the nuclear scan and and the final disposition, that is STIR versus 24-hour home care, the latter , which the patient is opting for. Problem List: 1. Supratherapeutic INR 2. Hip hematoma, left Pain Ratin Pain Location: HIP pain Pain Goal: Pain 4 or less Pain Plan: po Tylnol Tomorrow's Labs & Rationales: none PIPPA HODGE MD 06/27/16 1628: Attending MD Review Statement Attending Statement Attending MD Statement: examined this patient, discuss w/resident/PA/CLEAN UP HELPER BANQUET, agreed w/resident/PA/CLEAN UP HELPER BANQUET, discussed with family, reviewed EMR data (avail), discussed with nursing, discussed with case mgmt, reviewed images, amended to note Attending Assessment/Plan: The patient was seen and discussed with house staff. Bone scan negative for fracture. Will continue to hold Coumadin x 1 week (OK as per hand i blocker). Plan rehab placement. Add iron/stool regimen for anemia. Continue PT.
[2016-06-27 07:59] LABS: ABSOLUTE BASOPHIL COUNT 0 /CUMM (0.0-0.2); ABSOLUTE EOSINOPHIL COUNT 0.1 /CUMM (0.0-0.7); ABSOLUTE GRANULOCYTE CT 5.1 /CUMM (1.4-6.5); ABSOLUTE LYMPH COUNT 1.4 /CUMM (1.2-3.4); ABSOLUTE MONOCYTE COUNT 0.8 /CUMM (0.10-0.60); BASOPHIL % 0.2 % (0.0-2.0); EOSINOPHIL % 1.5 % (0-5); GRANULOCYTE % 69.3 % (42.2-75.2); HEMATOCRIT 28.3 % (42-52); MEAN CORPUSCULAR HGB 31.5 PG (27.0-31.0); MEAN CORPUSCULAR VOLUME 92.9 FL (80.0-94.0); PLATELET COUNT 165 /CUMM (130-400); RBC DISTRIBUTION WIDTH 15.5 % (11.5-14.5); RED BLOOD CELL CT 3.05 /CUMM (4.70-6.10); WHITE BLOOD CELL COUNT 7.4 /CUMM (4.8-10.8)
[2016-06-27 08:12] VITALS: BP 140/82
[2016-06-27 08:16] LABS: PT 30.1 SEC (9.4-12.5)
[2016-06-27] MEDS ORDERED: TYLENOL325 M1 PO (11:36)
--- NOTE | 2016-06-27 11:38 | Patient Discharge Instructions ---
Discharge Instructions General Discharge Information You were seen/treated for: left leg hematoma You had these procedures: none Special Instructions: please f/u with your pcp in1 week please f/u with PT therapy recommendations. Pleas continue holding Coumadin till 07/03 and then resume after checking INR. If less than 2 can resume it. Acute Coronary Syndrome Inclusion Criteria At DC or during hospital stay patient has or had the following: ACS DIAGNOSIS No Discharge Core Measures Meds if any: Prescribed or Continued at Discharge Meds if any: NOT Prescribed or Continued at Discharge Congestive Heart Failure Inclusion Criteria At DC or during hospital stay patient has or had the following: CHF DIAGNOSIS No Discharge Core Measures Meds if any: Prescribed or Continued at Discharge Meds if any: NOT Prescribed or Continued at Discharge Cerebrovascular accident Inclusion Criteria At DC or during hospital stay patient has or had the following: CVA/TIA Diagnosis No Discharge Core Measures Meds if any: Prescribed or Continued at Discharge Meds if any: NOT Prescribed or Continued at Discharge Venous thromboembolism Inclusion Criteria VTE Diagnosis No VTE Type NONE VTE Confirmed by (Test) NONE Discharge Core Measures - Per Current guidelines, there needs to be overlap - treatment for the first 5 days of Warfarin therapy. - If discharged on Warfarin prior to 5 days of - overlap therapy, the patient will need to be - assessed for post discharge needs including - *Post discharge parental anticoagulation - *Warfarin and/or parental anticoagulation education - *Follow up date to check INR post discharge At least 5 days overlap therapy as Inpatient No Meds if any: Prescribed or Continued at Discharge Note: Overlap Therapy is Warfarin and Anticoagulant Meds if any: NOT Prescribed or Continued at Discharge
[2016-06-27] MEDS ORDERED: COLACE100 M1 PO (12:28)
[2016-06-27] MEDS ORDERED: FERROUS SULFAT325 M3 PO (12:28)
--- NOTE | 2016-06-27 14:47 | NUCLEAR MEDICINE REPORT ---
EXAMINATION: NM BONE SCAN 3 PHASE CLINICAL INFORMATION: Left hip fracture. Pain. COMPARISON: No previous bone scan is available for comparison. Radiographs of the left hip dated 06/26/[address] scan of the pelvis on the same date are available for comparison. TECHNIQUE: Initial rapid sequence images were obtained over the hips and proximal thighs in the anterior and posterior projections during the bolus injection of 26.3 mCi Tc-99m HDP. Static images of the pelvis and proximal thighs were then obtained 2.75 hours post injection. FINDINGS: Initial rapid sequence images show bilaterally symmetrical flow in the hips and proximal thighs. The blood pool images obtained immediately following the flow study show an ill-defined region of slightly increased soft tissue activity laterally in the proximal left thigh which is just barely perceptible. The delayed static images show minimally increased activity in the greater femoral trochanters bilaterally. No other foci of abnormal activity are present in either hip. There is some increased soft tissue activity in the proximal left thigh and lower left buttock compared to the contralateral side, but this is just barely perceptible. The urinary bladder is well visualized but the kidneys are outside the [id number] and cannot be evaluated. IMPRESSION: No evidence of a recent fracture at any visualized site. Minimal soft tissue activity in the soft tissues adjacent to the left hip is nonspecific but may be due to some soft tissue injury or a myositis in this region.
[2016-06-27 16:45] VITALS: BP 122/58
[2016-06-28 00:39] VITALS: BP 114/58
[2016-06-28 08:17] VITALS: BP 125/55
[2016-06-28 08:22] LABS: ABSOLUTE BASOPHIL COUNT 0 /CUMM (0.0-0.2); ABSOLUTE EOSINOPHIL COUNT 0.2 /CUMM (0.0-0.7); ABSOLUTE GRANULOCYTE CT 4.7 /CUMM (1.4-6.5); ABSOLUTE LYMPH COUNT 1.9 /CUMM (1.2-3.4); ABSOLUTE MONOCYTE COUNT 0.9 /CUMM (0.10-0.60); BASOPHIL % 0.3 % (0.0-2.0); EOSINOPHIL % 2.2 % (0-5); GRANULOCYTE % 60.9 % (42.2-75.2); MEAN CORPUSCULAR HGB 31.3 PG (27.0-31.0); MEAN CORPUSCULAR HGB CONC 33.5 G/DL (33.0-37.0); MEAN CORPUSCULAR VOLUME 93.4 FL (80.0-94.0); MEAN PLATELET VOLUME 8.8 FL (7.4-10.4); PLATELET COUNT 162 /CUMM (130-400); RBC DISTRIBUTION WIDTH 16.1 % (11.5-14.5); RED BLOOD CELL CT 3.11 /CUMM (4.70-6.10); WHITE BLOOD CELL COUNT 7.7 /CUMM (4.8-10.8)
--- NOTE | 2016-06-28 08:25 | PN- Housestaff ---
MUNIR LIZ,LUIS EDUARDO 06/28/16 0823: Subjective Follow-up For: Left hip hematoma Complaints: pain scale (0-10) Subjective: I saw and examined the patient today morning He is feeling better. lying on the bed, denies any pain. Unable to walk around. No fevers, chills. Review of Systems Constitutional: Reports: see HPI. Comments: ROS negative except the above. Objective Last 24 Hrs of Vital Signs/I&O Vital Signs Date Time Temp Pulse Resp B/P Pulse O2 O2 Flow FiO2 Ox Delivery Rate 06/28 0817 97.7 83 20 125/55 94 Room Air 06/28 0039 97.7 81 20 114/58 95 06/27 1645 97.7 78 20 122/58 95 Room Air 06/27 0857 100 140/82 Intake & Output 06/28 1600 06/28 0800 06/28 0000 Intake Total 240 120 Output Total Balance 240 120 Intake, Oral 240 120 Physical Exam General Appearance: Alert, Oriented X3, Cooperative Skin: No Rashes, No Breakdown HEENT: Atraumatic, PERRLA, EOMI Neck: Supple Cardiovascular: Normal S1, Normal S2, sysotlic murmur present Lungs: Clear to Auscultation, Normal Air Movement Abdomen: Normal Bowel Sounds, Soft, No Tenderness Neurological: Normal Tone, Sensation Intact Extremities: No Clubbing, No Cyanosis, No Edema Current Medications: Current Medications Sig/Sindy Start time Last Medication Dose Route Stop Time Status Admin Acetaminophen 650 MG .STK-MED ONE 06/27 1641 DC PO 06/27 1642 Acetaminophen 650 MG .STK-MED ONE 06/27 0853 DC PO 06/27 0854 Acetaminophen 650 MG Q6P PRN 06/26 1300 AC 06/27 PO 1836 Atorvastatin Calcium 40 MG DAILY 06/27 1000 AC 06/27 PO 0856 Docusate Sodium 100 MG DAILY NEEDED PRN 06/27 1545 AC PO Ferrous Sulfate 325 MG DAILY 06/27 1541 AC 06/27 PO 1835 Hydromorphone HCl 1 MG Q6P PRN 06/26 1300 DC 06/27 IV 0029 Ibuprofen 600 MG Q6P PRN 06/26 1300 DC PO Melatonin 3 MG AT BEDTIME 06/26 2200 AC 06/27 PO 2148 Metoprolol Succinate 25 MG DAILY 06/27 1000 AC 06/27 PO 0857 Naproxen 500 MG Q8 06/27 1400 CAN PO Patient Medication 1 ED ONE ONE 06/27 1400 DC 06/27 Teaching ED 06/27 1401 1835 Senna/Docusate Sodium 2 TAB DAILY PRN 06/27 1545 AC PO Tramadol HCl 50 MG Q6 PRN 06/27 0915 DC PO Last 24 Hrs of Lab/Nilesh Results Last 24 Hrs of Labs/Mics: Laboratory Tests 06/28/16 0700: PT Pending, INR Pending, CBC w Diff Pending, WBC Pending, RBC Pending, Hgb Pending, Hct Pending, MCV Pending, MCH Pending, RDW Pending, Plt Count Pending, MPV Pending, PUBS MCHC Pending Lines/Diet/Fluids Lines: peripheral lines Assessment/Plan Assessment: This is an 89-year-old male with a past medical history of hypertension, hyperlipidemia, status post CABG, atrial fibrillation currently on Coumadin therapy who presented to the [facility] status post mechanical fall and which ended up having left leg hematoma Assessment 1. Mechanical fall status post left leg gluteus hematoma 2. History of hypertension 3. History of coronary artery disease status post CABG 4.Suoprattherapeutic INR Plan: Will c/w pain control as needed. DC DILAUDID as its worseing his Confusion. PO Tramadol for pain control if needed. PT eval - STR. Refusing Nuclear Scan for thge suspicion of FX C/w holding Coumadin - INR today is 2.03 Problem List: 1. Supratherapeutic INR 2. Hip hematoma, left Pain Ratin Pain Location: Hip Pain Goal: Pain 4 or less Pain Plan: Tramadol Tomorrow's Labs & Rationales: CBC to monitor H&H in the setting of hematoma' PT to monitor INR MAGDALENA LIZ,[facility] 06/28/16 1319: Attending MD Review Statement Attending Statement Attending MD Statement: examined this patient, discuss w/resident/PA/FOOD QUALITY TESTER, agreed w/resident/PA/FOOD QUALITY TESTER, reviewed EMR data (avail), discussed with nursing, reviewed images Attending Assessment/Plan: Patient was seen and examined on the bedside and plan discussed with the house staff. Coumadin continued to be on hold for 1 week as per architect naval and the plan is to discharge the patient to the short-term rehabilitation on Thursday.
[2016-06-28 08:26] LABS: PT 21.2 SEC (9.4-12.5)
[2016-06-28 16:32] VITALS: BP 104/70
[2016-06-29 01:26] VITALS: BP 112/76
--- NOTE | 2016-06-29 06:42 | NUR ---
LATE ENTRY NURSING NOTE: AT 0450 THE BED ALARM FOR PT RM [id number] WENT OFF. THIS RN WAS IN THE PROCESS OF WALKING IN THE ROOM. UPON ENTERING THE ROOM THE PT WAS ON THE FLOOR KNEELING ON HIS LEFT LEG AND HOLDING ONTO THE BED SIDERAIL WITH HIS RIGHT. UNDER THE PT FOOT WAS HIS BED SHEET AND BLANKET. WHEN ASKED WHAT HAPPENED THE PT STATED "I SLIPPED ON THE ICE". VS:158/82, 98, 97.3, 96% ON RA AND FINGERSTICK WAS 115. THE PT WAS HELPED BACK INTO BED AND WAS VERY CONFUSED TO WHAT JUST HAPPENED. THE NIGHT [place] [employer] WAS PRESENT AT THIS TIME AND ALSO ENTERED THE PT ROOM TO ASSESS AND SPEAK TO HIM. IT WAS DETERMINED THAT THE PT WAS A HIGH FALL RISK AND A SITTER WAS REQUIRED. SITTER AT THE BEDSIDE AND THE PT REMAINED CALM AND COOPERATIVE.
[2016-06-29 08:17] VITALS: BP 142/72
--- NOTE | 2016-06-29 09:11 | PN- Housestaff ---
See Addendum Subjective Follow-up For: Left hip hematoma Complaints: no complaints Subjective: Patient was visited and examined this morning. He was sitting, very comfortably ,at the fish tank area with his family. Patient mentions that his being able to ambulate using a walker although he still feels slightly weaker than his baseline. There was concern about his overnight confusion and delirious state which required Haldol injection. During this interview patient is alert and oriented 3 vital signs are stable. Review of Systems Constitutional: Reports: see HPI. Denies: chills, diaphoresis, fever, malaise, weakness, unexplained weight loss. EENTM: Reports: see HPI. Denies: blurred vision, double vision, visual changes, eye pain, eye drainage, eye tearing, icterus, ear discharge, ear pain, ear redness, hearing changes, nasal congestion, epistaxis, nasal pain, throat pain, throat swelling, mouth pain, tooth pain. Cardiovascular: Denies: chest pain, edema, orthopena, palpitations, peripheral edema, syncope. Respiratory: Reports: see HPI. Gastrointestinal: Reports: see HPI. Genitourinary: Reports: see HPI. Musculoskeletal: Reports: see HPI, back pain, joint pain. Objective Last 24 Hrs of Vital Signs/I&O Vital Signs Date Time Temp Pulse Resp B/P Pulse O2 O2 Flow FiO2 Ox Delivery Rate 06/29 0817 98.1 87 20 142/72 97 Room Air 06/29 0126 97.9 78 20 112/76 95 Room Air 06/28 1632 97.6 75 20 104/70 97 06/28 1138 83 125/55 Intake & Output 06/29 1600 06/29 0800 06/29 0000 Intake Total Output Total 100 300 Balance -100 -300 Number 1 Bowel Movements Output, Urine 100 300 Physical Exam General Appearance: Alert, Oriented X3, Cooperative, No Acute Distress Skin: stasis dermatitis on bilateral lower extremities HEENT: PERRLA, EOMI, Mucous Membr. moist/pink Neck: Supple Lymphatic: Axillary nl, Cervical nl Cardiovascular: Normal S1, Normal S2, irregularly irregular Lungs: slightly diminished air movements Abdomen: Soft Neurological: Normal Gait, Normal Speech Extremities: No Cyanosis, No Edema Vascular: Normal Pulses, Pulses Symmetrical, varicose vein stage II Current Medications: Current Medications Sig/Sindy Start time Last Medication Dose Route Stop Time Status Admin Acetaminophen 650 MG .STK-MED ONE 06/28 1134 DC PO 06/28 1135 Acetaminophen 650 MG Q6P PRN 06/26 1300 AC 06/28 PO 1139 Atorvastatin Calcium 40 MG DAILY 06/27 1000 AC 06/28 PO 1138 Docusate Sodium 100 MG .STK-MED ONE 06/28 1135 DC PO 06/28 1136 Docusate Sodium 100 MG DAILY NEEDED PRN 06/27 1545 AC 06/28 PO 1138 Ferrous Sulfate 325 MG DAILY 06/27 1541 AC 06/28 PO 1139 Haloperidol 5 MG ONCE ONE 06/29 0115 DC 06/29 IM 06/29 0116 0124 Melatonin 3 MG AT BEDTIME 06/26 2200 AC 06/28 PO 205 Metoprolol Succinate 25 MG DAILY 06/27 1000 AC 06/28 PO 1138 Senna/Docusate Sodium 2 TAB DAILY PRN 06/27 1545 AC 06/28 PO 1139 Last 24 Hrs of Lab/Nilesh Results Last 24 Hrs of Labs/Mics: Laboratory Tests 06/29/16 0956: CBC w Diff NO MAN DIFF REQ, RBC 3.24 L, MCV 94.1 H, MCH 31.2 H, RDW 16.1 H, MPV 8.3, Gran % 75.8 H, Lymphocytes % 14.7 L, Monocytes % 8.5, Eosinophils % 0.8, Basophils % 0.2, Absolute Granulocytes 6.2, Absolute Lymphocytes 1.2, Absolute Monocytes 0.7 H, Absolute Eosinophils 0.1, Absolute Basophils 0, PUBS MCHC 33.2 Assessment/Plan Assessment: This is an 89-year-old male with a past medical history of hypertension, hyperlipidemia, status post CABG, atrial fibrillation currently on Coumadin therapy who presented to the [facility] status post mechanical fall and which ended up having left leg hematoma Assessment 1. Mechanical fall status post left leg gluteus hematoma 2. History of hypertension 3. History of coronary artery disease status post CABG 4. Afib on warfarin for A/C 5. Delirium: in my opinion patient does not have any organic cause/reversible cause for his deliriuos state except for sun-set in the setting of hospitalization in elderly patient. Plan: Afib warfarin is held due to hematoma: H&H is stable and patient does not have increasing pain on the affected side. Check daily INR and keep INR 2-3 Will c/w pain control as needed. Confusion: Avoid hypnotic and sedative medication; Avoid restrain; Keep the light on during the night and have familiar pictures at his bedside; in case of severe agitation Haldol 0.5 mg. PO Tramadol for pain control if needed. PT eval - STR. Problem List: 1. Delirium 2. Hematoma 3. Afib Pain Ratin Pain Location: left hip Pain Goal: Pain 4 or less Pain Plan: tylenol and tordol Tomorrow's Labs & Rationales: INR Discharge Plan Discharge Disposition: STR/NH Stable for Discharge? Yes
[2016-06-29 10:09] LABS: ABSOLUTE BASOPHIL COUNT 0 /CUMM (0.0-0.2); ABSOLUTE EOSINOPHIL COUNT 0.1 /CUMM (0.0-0.7); ABSOLUTE GRANULOCYTE CT 6.2 /CUMM (1.4-6.5); ABSOLUTE LYMPH COUNT 1.2 /CUMM (1.2-3.4); ABSOLUTE MONOCYTE COUNT 0.7 /CUMM (0.10-0.60); BASOPHIL % 0.2 % (0.0-2.0); EOSINOPHIL % 0.8 % (0-5); GRANULOCYTE % 75.8 % (42.2-75.2); HEMATOCRIT 30.5 % (42-52); MEAN CORPUSCULAR HGB 31.2 PG (27.0-31.0); MEAN CORPUSCULAR HGB CONC 33.2 G/DL (33.0-37.0); MEAN CORPUSCULAR VOLUME 94.1 FL (80.0-94.0); MEAN PLATELET VOLUME 8.3 FL (7.4-10.4); PLATELET COUNT 179 /CUMM (130-400); RBC DISTRIBUTION WIDTH 16.1 % (11.5-14.5); RED BLOOD CELL CT 3.24 /CUMM (4.70-6.10); WHITE BLOOD CELL COUNT 8.1 /CUMM (4.8-10.8)
[2016-06-29 12:10] LABS: PT 17.1 SEC (9.4-12.5)
--- NOTE | 2016-06-29 17:30 | NUR ---
PT BECAME AGITATED, ARGUMENTATIVE, INSISTING ON MOVING FURNITURE IN THE ROOM, INSULTING STAFF, SWINGING AT STAFF, VERY CONFUSED. MD PIERCE PRESENT, ORDERED HALDOL 1MG IM. WITH 3 PEOPLE REATRAINING PT, THIS RN WAS ABLE TO GIVE MEDICATION. SHORTLY AFTER, HE CALMED DOWN AND WAS AGREEABLE TO TRANSFERRING ROOMS. HE WAS MOVED TO [facility] PER THE FAMILY'S REQUEST THAT HE HAVE A BED NEAR THE WINDOW. WITHIN THE HOUR, HE GOT OUT OF BED AND BECAME THEATENING AGAIN. PT IS NOW WEARING BELA TETHERED TO BED, 1:1 SITTER AT BEDSIDE.
--- NOTE | 2016-06-29 22:30 | NUR ---
NURSING NOTE: PT YELLING AND SCREAMING, PT COMBATIVE. ORDER #7 CALLED. PT ASSISTED BACK TO BED. BELA IN PLACE. REMERON ORDERED AND GIVEN TO PT. PT MOVED TO ROOM 218. OKAY TO MOVE TO DIFFERENT ROOM PER NURSING PASTRY DECORATOR. PSM IN PLACE. WILL CONTINUE TO MONITOR.
--- NOTE | 2016-06-29 23:30 | NUR ---
NURSING NOTE: NET BED IN PLACE. BELA RESTRAINT D/C. PT QUIET AND SLEEPING AT THIS TIME. PSM IN PLACE. WILL CONTINUE TO MONITOR.
[2016-06-30 00:38] VITALS: BP 128/70
--- NOTE | 2016-06-30 07:29 | PN- Housestaff ---
NATHAN LIZ,JENNIE 06/30/16 0729: Subjective Follow-up For: acute hospital induced delirium S/p mechanical fall Subjective: Jay has been put in net bed and has been having episodes of acute delirium. Review of Systems Constitutional: Reports: see HPI. Objective Last 24 Hrs of Vital Signs/I&O Vital Signs Date Time Temp Pulse Resp B/P Pulse O2 O2 Flow FiO2 Ox Delivery Rate 06/30 0838 97.5 96 18 130/88 95 Room Air 06/30 0038 97.1 100 20 128/70 96 06/29 1056 87 142/72 Intake & Output 06/30 1600 06/30 0800 06/30 0000 Intake Total Output Total 150 150 Balance -150 -150 Output, Urine 150 150 Physical Exam General Appearance: not alert oriented times 3 Skin: No Rashes, No Breakdown HEENT: Atraumatic, PERRLA Neck: Supple, No JVD Assessment/Plan Assessment: This is an 89-year-old male with a past medical history of hypertension, hyperlipidemia, status post CABG, atrial fibrillation currently on Coumadin therapy who presented to the [facility] status post mechanical fall and which ended up having left leg hematoma Assessment 1. Mechanical fall status post left leg gluteus hematoma 2. Acute Delirium likley from prolonged hospitak stay 2. History of hypertension 3. History of coronary artery disease status post CABG 4. Afib on warfarin for A/C 5. Delirium: in my opinion patient does not have any organic cause/reversible cause for his deliriuos state except for sun-set in the setting of hospitalization in elderly patient. Plan: continue holding the coumaduin.Unfortymately one dose was given yeterday . INR today is 1.57. Jay delirium is likley from prolonged hospital stay. No obvious delirium triggers,such as infection or constipation. Will c/w pain control as needed. Confusion: Avoid hypnotic and sedative medication; Avoid restrain; Keep the light on during the night and have familiar pictures at his bedside; in case of severe agitation Haldol 0.5 mg. PO Tramadol for pain control if needed. The family has opted for 24 hour care given at home and not STR as they think its likely friom the hospital setting. The patient is still in net bed and 1:1 sitter We can dc the Net bed as it can worsen the delirium Problem List: 1. Afib 2. Delirium 3. Supratherapeutic INR Pain Ratin Pain Location: po tyelnel as needed Pain Goal: Remain pain free Pain Plan: po tylenol as needed Tomorrow's Labs & Rationales: none PIPPA HODGE MD 06/30/16 1511: Attending MD Review Statement Attending Statement Attending MD Statement: examined this patient, discuss w/resident/PA/SUPERVISOR ELECTRIC, agreed w/resident/PA/SUPERVISOR ELECTRIC, discussed with family, reviewed EMR data (avail), discussed with nursing, discussed with case mgmt, amended to note Attending Assessment/Plan: The patient was seen and discussed with house staff, CRM, and family. Acute delirium most likely multifactorial- hospital stay/sleep deprivation/pain, etc. Will obtain psychiatry input and probable trial of Haldol to adjust sleep cycle. Family intends to take home with 24 hour care when he is more manageable.
[2016-06-30 08:24] LABS: PT 16.3 SEC (9.4-12.5)
[2016-06-30 08:38] VITALS: BP 130/88
--- NOTE | 2016-06-30 09:38 | NUR ---
LATE ENTRY: PT'S NET BED OPENED PT MORE COOPERATIVE AT PRESENT. SITTER AT BEDSIDE TO MAINTAIN SAFETY. DR. EVANS INFORMED. WILL CONT TO MONITOR.
--- NOTE | 2016-06-30 12:30 | NUR ---
LATE ENTRY: PT REPORTEDLY GOT AGITATED AND COMBATIVE WITH PHYSICAL THERAPY STAFF. ORDER #7 CALLED. PT ASSISTED BACK TO BED. SAFETY MAINTAINED. WILL CONT TO MONITOR.
--- NOTE | 2016-06-30 14:32 | NUR ---
PT ATTEMPTING TO GET OOB UNSAFELY. SITTER AT BEDSIDE. NET BED RE-ZIPPED. DR. EVANS CONTACTED. SNO. SAFETY MAINTAINED. WILL CONT TO MONITOR.
--- NOTE | 2016-06-30 15:59 | Cons- Psychiatry ---
Psychiatric Consult Date of Consult: 06/30/16 Reason for Consult: "Acute delirium" History of Present Illness: 89-year-old male presents to the emergency department on 06/26/16 with a CC of left hip pain, s/p fall at home, where he lives alone. The patient is on Coumadin for afib, and was admitted for supratherapeutic INR, left hip hematome (Fx ruled out) and muscle strain. According to his son-in-law, Jason, he had a fall, unwitnessed, perhaps a week before he wanted to come to the ED due to worsening pain. The patient has normal cognition without confusion, per Jason. Per the medical team, the patient was demonstrating normal mentation on Thursday , but his behavior deteriorated and he became more confused over the weekend. He was put in a Soma safety enclosure on 06/30/16. Allergies: Coded Allergies: Penicillins (Intermediate, UNKNOWN 06/26/16) codeine (UNKNOWN 06/26/16) Current Medications: Current Medications Sig/Sindy Start time Last Medication Dose Route Stop Time Status Admin Acetaminophen 650 MG Q6P PRN 06/26 1300 AC 06/28 PO 1139 Atorvastatin Calcium 40 MG DAILY 06/27 1000 AC 06/30 PO 0930 Docusate Sodium 100 MG DAILY NEEDED PRN 06/27 1545 AC 06/28 PO 1138 Ferrous Sulfate 325 MG DAILY 06/27 1541 AC 06/30 PO 0930 Haloperidol 1 MG ONCE ONE 06/29 1800 DC 06/29 IM 06/29 1801 1805 Melatonin 3 MG AT BEDTIME 06/26 2200 AC 06/29 PO 2216 Metoprolol Succinate 25 MG DAILY 06/27 1000 AC 06/30 PO 0930 Patient Medication 1 UNIT ONE NR 06/29 1800 MN Teaching ED 06/29 1830 Ramelteon 8 MG AT BEDTIME 06/30 2200 AC PO Ramelteon 8 MG ONCE ONE 06/29 2245 DC 06/29 PO 06/29 2246 2252 Senna/Docusate Sodium 2 TAB DAILY PRN 06/27 1545 AC 06/28 PO 1139 Warfarin Sodium 5 MG COUMADIN 1700 ONE 06/29 1700 DC 06/29 PO 06/29 [id number] Past History Past Medical History Neurological: NONE EENT: NONE Cardiovascular: TRIPLE BYPASS HIGH CHOLESTEROL Respiratory: NONE Gastrointestinal: NONE Hepatic: NONE Renal: NONE Musculoskeletal: NONE Psychiatric: NONE Endocrine: NONE Blood Disorders: NONE Cancer(s): COLON CANCER 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 He is in a NetBed and his 1:1 sitter is present, ordered for agitation. The patient is confused, but knows his name and recognizes his son-in-law, Jason, who is present and supportive. The patient denies AVH, and presents no mandeep delusions. He endorses depression and anxiety, "A little bit." He states that when his 16 years ago (Year confirmed by Jason), he felt like killing himself, but without plan or intent. He currently denies suicidal or homicidal ideation. He reports feeling safe in the hospital. Denies history of psychiatric disorder, but when asked about family history, he chuckled, but did not elaborate. Lab Results: Laboratory Tests 06/30 06/29 06/29 0630 1026 0956 Coagulation PT (9.4 - 12.5 SEC) 16.3 H 17.1 H INR (0.90 - 1.17) 1.56 H 1.64 H Hematology CBC w Diff NO MAN DIFF REQ WBC (4.8 - 10.8 /CUMM) 8.1 RBC (4.70 - 6.10 /CUMM) 3.24 L Hgb (14.0 - 18.0 G/DL) 10.1 L Hct (42 - 52 %) 30.5 L MCV (80.0 - 94.0 FL) 94.1 H MCH (27.0 - 31.0 PG) 31.2 H RDW (11.5 - 14.5 %) 16.1 H Plt Count (130 - 400 /CUMM) 179 MPV (7.4 - 10.4 FL) 8.3 Gran % (42.2 - 75.2 %) 75.8 H Lymphocytes % (20.5 - 51.1 %) 14.7 L Monocytes % (1.7 - 9.3 %) 8.5 Eosinophils % (0 - 5 %) 0.8 Basophils % (0.0 - 2.0 %) 0.2 Absolute Granulocytes (1.4 - 6.5 /CUMM) 6.2 Absolute Lymphocytes (1.2 - 3.4 /CUMM) 1.2 Absolute Monocytes (0.10 - 0.60 /CUMM) 0.7 H Absolute Eosinophils (0.0 - 0.7 /CUMM) 0.1 Absolute Basophils (0.0 - 0.2 /CUMM) 0 PUBS MCHC (33.0 - 37.0 G/DL) 33.2 06/28 0700 Coagulation PT (9.4 - 12.5 SEC) 21.2 H INR (0.90 - 1.17) 2.03 H Hematology CBC w Diff NO MAN DIFF REQ WBC (4.8 - 10.8 /CUMM) 7.7 RBC (4.70 - 6.10 /CUMM) 3.11 L Hgb (14.0 - 18.0 G/DL) 9.7 L Hct (42 - 52 %) 29.0 L MCV (80.0 - 94.0 FL) 93.4 MCH (27.0 - 31.0 PG) 31.3 H RDW (11.5 - 14.5 %) 16.1 H Plt Count (130 - 400 /CUMM) 162 MPV (7.4 - 10.4 FL) 8.8 Gran % (42.2 - 75.2 %) 60.9 Lymphocytes % (20.5 - 51.1 %) 24.3 Monocytes % (1.7 - 9.3 %) 12.3 H Eosinophils % (0 - 5 %) 2.2 Basophils % (0.0 - 2.0 %) 0.3 Absolute Granulocytes (1.4 - 6.5 /CUMM) 4.7 Absolute Lymphocytes (1.2 - 3.4 /CUMM) 1.9 Absolute Monocytes (0.10 - 0.60 /CUMM) 0.9 H Absolute Eosinophils (0.0 - 0.7 /CUMM) 0.2 Absolute Basophils (0.0 - 0.2 /CUMM) 0 PUBS MCHC (33.0 - 37.0 G/DL) 33.5 UA, Lyme, pending. Diffential Diagnosis: Delirium likely due to multiple factors, including sleep deficiency, constipation (Last BM 06/28/16). Rule out subdural hematoma or other head trauma. Impression: The patient is moderately confused, but able to remember certain events from his past. He has not had opiate medications since 06/27/16. Currently no strong anticholinergic medications. The patient was yawning during our interview, but nursing reports that the patient received Ramelteon 8 mg last night and responded well to it. The patient did not have a head strike, per the H&P, however, his waxing/waning behavior might be explained by a subdural hematoma. He has atrial fibrillation and has a pacemaker, per the medical team. Last EKG on 06/29/162151: Afib, 100 bpm, QTc 480 mS. Provisional Treatment Plan: 1. Consider restarting Ramelteon 8 mg PO at bedtime. 2. Consider trazodone 12.5 mg PO every 6 hours as needed for agitation. 3. Reversible dementia workup, including infective etiology, such as UTI, Lyme disease, RPR/VDRL, etc. 4. Please avoid QT-prolonging medications, such as antipsychotics, unless approved by cardiology. 5. Please continue to avoid benzodiazepines, opioid analgesics, and meds with strong anticholinergic properties as much as possible to prevent further confusion. 6. Please initiate the following nonpharmacologic interventions: -Avoid nursing and medical procedures during sleep hours whenever possible - Cluster at night interventions that must be completed as much as possible to minimize sleep disruption - Decrease noise patient area during sleeping hours - Reduce lighting at night - Ensure patient has any sensory aids close by that he regularly uses 7. Please order the following to rule out additional causes of altered mental status, if not already completed: (Some of these have been performed) - LFTs - CMP - UA & Culture - Thyroid panel - B12 & folate - ESR - RPR/VDRL - Lyme titer - Head CT We will continue to follow along with you. Angus Gonzalez APRN, Pager [phone]
[2016-06-30 17:44] VITALS: BP 132/72
--- NOTE | 2016-06-30 18:15 | NUR ---
PSYCH CONSULT NOTED. CT SCAN OF HEAD RECOMMENDED. MD SANTANA PATIÑO CONTACTED- TO CONTACT DR. EVANS. PER , CT SCAN NOT NEEDED AT THIS TIME. PT DID HAVE HX OF FALL AT HOME AND IS CONFUSED. PT'S CONFUSION REPORTEDLY D/T SLEEP DISTURBANCE. WILL CONT TO MONITOR.
--- NOTE | 2016-06-30 20:28 | NUR ---
LATE ENTRY: PT HAS BEEN INCONTINENT. U/A NEEDED, DR. PATIÑO CONTACTED- [facility] FOR STRAIGHT CATH. PT TOLERATED PROCEDURE WELL. U/A OBTAINED AND SENT TO LAB. NIGHT RN TO FOLLOW.
[2016-07-01 00:52] VITALS: BP 130/76
--- NOTE | 2016-07-01 04:57 | PN- Housestaff ---
Subjective Follow-up For: Status post mechanical fall Left leg hematoma on Coumadin therapy Subjective: Patient is still in that bed, sleeping. No acute episodes of delirium overnight Review of Systems Constitutional: Reports: see HPI. Objective Last 24 Hrs of Vital Signs/I&O Vital Signs Date Time Temp Pulse Resp B/P Pulse O2 O2 Flow FiO2 Ox Delivery Rate 07/01 0052 98.6 90 20 130/76 97 06/30 1744 98.7 95 20 132/72 98 06/30 0930 96 130/88 Intake & Output 07/01 1600 07/01 0800 07/01 0000 Intake Total Output Total 860 Balance -860 Output, Urine 860 Physical Exam General Appearance: Mild Distress, could not be assessed as the patient was sleeping Skin: No Rashes, No Breakdown Lymphatic: Cervical nl Cardiovascular: Normal S1, Normal S2 Lungs: Normal Air Movement Extremities: left leg bruising , sanchez-yellow Vascular: Normal Pulses Assessment/Plan Assessment: This is an 89-year-old male with a past medical history of hypertension, hyperlipidemia, status post CABG, atrial fibrillation currently on Coumadin therapy who presented to the [facility] status post mechanical fall and which ended up having left leg hematoma Assessment 1. Mechanical fall status post left leg gluteus hematoma 2. Acute Delirium christieley from prolonged hospitak stay 2. History of hypertension 3. History of coronary artery disease status post CABG 4. Afib on warfarin for A/C 5. Delirium: in my opinion patient does not have any organic cause/reversible cause for his deliriuos state except for sun-set in the setting of hospitalization in elderly patient. Plan: Continue holding Coumadin until 07/03/2016 ,(this was also discussed with the patient's manager of recruiting Dr. Zhang) Will c/w pain control as needed. Triggers for acute delirium have been ruled out. Negative urinalysis, TSH vitamin B12 within normal limits. Lyme and syphilis serology pending. Acute delirium, better than yesterday, continue with Bethany Ramm and trazodone. This should be also given on discharge to the patient. The family has opted for 24 hour care given at home and not STR as they think its likely friom the hospital setting. The patient is still in net bed and 1:1 sitter , which we will try to DC today. Family at bedside. They were updated about the patient's management and plan of care Up[place] @ 1300: patient's Lyme titer came back positiveTo 5.6. I discussed the results with the Id staff Jeyson Kelley MD, who was not really impressed with the results And commented this could be an old true positive considering that the patient is an epidemic area for Lyme. Edvin blot has been sent by the lab and will follow-up with the final results of the result. If the IgM for the Lyme is positive again consult with the ID and recommendations Problem List: 1. Afib 2. Hematoma Pain Ratin Pain Location: left leg Pain Goal: Pain 4 or less Pain Plan: po tylenol as needed Tomorrow's Labs & Rationales: INR and CBC
[2016-07-01 08:50] LABS: PT 17.9 SEC (9.4-12.5)
[2016-07-01] MEDS ORDERED: TRAZODONE HCL50 M1 PO (08:50)
[2016-07-01] MEDS ORDERED: ROZEREM8 M1 PO (08:50)
--- NOTE | 2016-07-01 10:13 | PN- Psychiatry ---
See Addendum Assessment/Plan Impression: Nursing reports that the patient did not sleep much last night, but he has only had 3 hours this morning, and wishes to continue sleeping. Our impression during her first visit yesterday, was that one factor in the patient's delirium/ change of mental status, might be lack of sleep. The patient responded well to reinitiation of his ramelteon, and also had a dose of trazodone 12.5 mg by mouth just after midnight. The melatonin is redundant at this time, and may be discontinued. Urinalysis was clear, vitamin B12 and TSH were within normal limits. Lyme titer returned at 5.86, or elevated; a Lyme Western blot assay is pending. Results greater than 1.1 are considered positive for the Lyme antibody. The medical team did not feel that a CT of the head was warranted. We were concerned that the patient had had a fall over a week ago, and is on warfarin for atrial fibrillation. Head strike was denied by the patient, but was unobserved. Suggestion: 1. Discontinue melatonin. Continue ramelteon 8 mg by mouth at bedtime for insomnia. 2. Continue trazodone 12.5 mg by mouth every 6 hours as needed for agitation. If ramelteon proves insufficient to help with insomnia, trazodone may be continued for this purpose. We will attempt to attend the family meeting today at one p.m. Angus Gonzalez APRN, pager [phone]. Subjective Subjective: The patient was seen today, 07/01/2016, at 0835, in room 218. The patient's supportive son and one of his daughters are present. The safety monitor is present. the patient is lying and then unzipped soma safety and closure, and is calm and resting with his eyes closed. He is arousable, and oriented to person, only. His daughter suggests that it would be unusual for him to be aware of the day. He reports that he feels safe here in the hospital. He denies SI/HI. No mandeep delusions. Objective Last 24 Hrs of Vital Signs/I&O Vital Signs Date Time Temp Pulse Resp B/P Pulse O2 O2 Flow FiO2 Ox Delivery Rate 07/01 0052 98.6 90 20 130/76 97 06/30 1744 98.7 95 20 132/72 98 Intake & Output 07/01 1600 02/28 0800 07/01 0000 Intake Total 480 Output Total 860 Balance -380 Intake, Oral 480 Output, Urine 860 Current Medications: Current Medications Sig/Sindy Start time Last Medication Dose Route Stop Time Status Admin Acetaminophen 650 MG Q6P PRN 06/26 1300 AC 06/28 PO 1139 Atorvastatin Calcium 40 MG DAILY 06/27 1000 AC 06/30 PO 0930 Docusate Sodium 100 MG DAILY NEEDED PRN 06/27 1545 AC 06/28 PO 1138 Ferrous Sulfate 325 MG DAILY 06/27 1541 AC 06/30 PO 0930 Melatonin 3 MG AT BEDTIME 06/26 2200 AC 06/30 PO 2151 Metoprolol Succinate 25 MG DAILY 06/27 1000 AC 06/30 PO 0930 Ramelteon 8 MG AT BEDTIME 06/30 220 AC 06/30 PO 2151 Senna/Docusate Sodium 2 TAB DAILY PRN 06/27 1545 AC 06/28 PO 1139 Trazodone HCl 12.5 MG Q6-PRN PRN 06/30 1715 AC 07/01 PO 0033 Results Last 24 Hrs of Labs/Mics: Laboratory Tests 07/01 07/01 0700 0435 Coagulation PT (9.4 - 12.5 SEC) 17.9 H INR (0.90 - 1.17) 1.71 H Urines Urinalysis LIGHT H Urine Color (YEL,AMB,STR) YEL Urine Clarity (CLEAR) CLEAR Urine pH (5.0 - 8.0) 6.0 Ur Specific [place] (1.001 - 1.035) 1.020 Urine Protein (NEG,<30 MG/DL) TRACE H Urine Ketones (NEG) NEG Urine Nitrite (NEG) NEG Urine Bilirubin (NEG) NEG Urine Urobilinogen (0.1 - 1.0 EU/dl) 1.0 Ur Leukocyte Esterase (NEG) NEG Ur Microscopic SEDIMENT EXAMINED Urine RBC (0 - 5 /HPF) 1-3 Ur Epithelial Cells (NONE,FEW) FEW Granular Casts (NONE /LPF) 1-3 H Urine Hemoglobin (NEG) TRACE-INTACT H Urine Glucose (N MG/DL) NEG 06/30 1528 Chemistry Vitamin B12 (239 - 931 pg/mL) 288 TSH (0.270 - 4.200 uIU/mL) 2.220 Serology RPR Titer/FTA (NONREACTIVE) NONREACTIVE Lyme Disease Antibody (RATIO) 5.86 *H Urines Urine Color (YEL,AMB,STR) YEL Urine Clarity (CLEAR) CLEAR Urine pH (5.0 - 8.0) 6.0 Ur Specific [place] (1.001 - 1.035) 1.020 Urine Protein (NEG,<30 MG/DL) TRACE H Urine Ketones (NEG) NEG Urine Nitrite (NEG) NEG Urine Bilirubin (NEG) NEG Urine Urobilinogen (0.1 - 1.0 EU/dl) 1.0 Ur Leukocyte Esterase (NEG) NEG Ur Microscopic SEDIMENT EXAMINED Urine RBC (0 - 5 /HPF) 5-10 H Urine Bacteria (NEG/NONE) RARE H Urine Mucus (FEW,NONE) RARE Urine Hemoglobin (NEG) SMALL H Urine Glucose (N MG/DL) NEG 06/30 1438 Serology Lyme Ab (Western Blot) Pending Lyme IgG 18 kDa Band Pending Lyme IgG 23 kDa Band Pending Lyme IgG 28 kDa Band Pending Lyme IgG 30 kDa Band Pending Lyme IgG 39 kDa Band Pending Lyme IgG 41 kDa Band Pending Lyme IgG 45 kDa Band Pending Lyme IgG 58 kDa Band Pending Lyme IgG 66 kDa Band Pending Lyme IgG 93 kDa Band Pending Lyme IgM (Western Blot) Pending Lyme IgM 23 kDa Band Pending Lyme IgM 39 kDa Band Pending Lyme IgM 41 kDa Band Pending
[2016-07-01 10:43] VITALS: BP 122/64
--- NOTE | 2016-07-01 13:23 | NUR ---
PHYSICAL THERAPY- ATTEMPTED TO SEE PT x3 TODAY. PT SOUNDLY SLEEPING EACH TIME, SOMNOLENT AND UNABLE TO PARTICIPATE IN SKILLED THERAPY SAFELY GIVEN CURRENT LEVEL OF ALERTNESS. D/W RN AND MST/SITTER WHO REPORT PT HAS BEEN SOUNDLY SLEEPING DUE TO LACK OF SLEEP LAST NIGHT AND PREVIOUSLY. WILL FOLLOW APPROPRIATE.
--- NOTE | 2016-07-01 14:09 | NUR ---
NSG NOTE: PATIENT HAS NOT VOIDED; 1200 BLADDER SCANNED 240; PER PROTOCOL, BLADDER SCAN >350 CC; MD AWARE;
[2016-07-02 00:47] VITALS: BP 110/70
[2016-07-02 07:53] VITALS: BP 112/60
--- NOTE | 2016-07-02 09:27 | PN- Housestaff ---
EDGARDO LIZ,MILAGRO 07/02/16 0916: Subjective Follow-up For: Acute delirium Status post mechanical fall Complaints: no complaints Subjective: Lying in bed comfortably no complaints. According to nursing staff did well overnight, net bed remained open. Review of Systems Constitutional: Reports: see HPI. Objective Last 24 Hrs of Vital Signs/I&O Vital Signs Date Time Temp Pulse Resp B/P Pulse O2 O2 Flow FiO2 Ox Delivery Rate 07/02 0753 97.3 67 20 112/60 95 Room Air 07/02 0047 98.2 90 20 110/70 96 Room Air 07/01 1043 98.2 92 20 122/64 96 Room Air 07/01 1023 92 122/64 Intake & Output 07/02 1600 07/02 0800 07/02 0000 Intake Total 360 Output Total 400 Balance -400 360 Intake, Oral 360 Output, Urine 400 Physical Exam General Appearance: Alert, Cooperative, oriented x2, person place Skin: No Rashes HEENT: Atraumatic, right eye not reactive to light, reports injury in the past Neck: Supple, No JVD Cardiovascular: Regular Rate, Normal S1, Normal S2, No Murmurs Lungs: Clear to Auscultation, Normal Air Movement Abdomen: Normal Bowel Sounds, Soft Neurological: Normal Speech Extremities: No Edema Current Medications: Current Medications Sig/Sindy Start time Last Medication Dose Route Stop Time Status Admin Acetaminophen 650 MG Q6P PRN 06/26 1300 AC 06/28 PO 1139 Atorvastatin Calcium 40 MG DAILY 06/27 1000 AC 07/01 PO 1018 Docusate Sodium 100 MG DAILY NEEDED PRN 06/27 1545 AC 06/28 PO 1138 Ferrous Sulfate 325 MG DAILY 06/27 1541 AC 07/01 PO 1018 Melatonin 3 MG AT BEDTIME 06/26 2200 AC 07/01 PO 2127 Metoprolol Succinate 25 MG DAILY 06/27 1000 AC 07/01 PO 1023 Ramelteon 8 MG AT BEDTIME 06/30 2200 AC 07/01 PO 2127 Senna/Docusate Sodium 2 TAB DAILY PRN 06/27 1545 AC 06/28 PO 1139 Trazodone HCl 12.5 MG Q6-PRN PRN 06/30 1715 AC 07/01 PO 0033 Last 24 Hrs of Lab/Nilesh Results Last 24 Hrs of Labs/Mics: Laboratory Tests 07/02/16 0648: PT 18.0 H, INR 1.72 H Assessment/Plan Assessment: 89-year-old male with a past medical history of hypertension, hyperlipidemia, status post CABG, atrial fibrillation currently on Coumadin therapy who presented to the [facility] status post mechanical fall and which ended up having left leg hematoma Assessment 1. Mechanical fall status post left leg gluteus hematoma 2. Acute Delirium likley from prolonged hospitak stay 2. History of hypertension 3. History of coronary artery disease status post CABG 4. Afib on warfarin for A/C 5. Delirium: Plan: Continue holding Coumadin until 07/03/2016 ,(this was also discussed with the patient's wrapping machine operator Dr. Zhang) Will c/w pain control as needed. Triggers for acute delirium have been ruled out. Negative urinalysis, TSH vitamin B12 within normal limits. RPR negative, Lyme 5.6. Acute delirium, better than yesterday, continue with Rozerem and trazodone. This should be also given on discharge to the patient. The family has opted for 24 hour care given at home and not STR as they think its likely friom the hospital setting. The patient is still in net bed and 1:1 sitter , which we will try to DC today. He is able to follow commands today, and is cooperative will have Head CT done to evaulate, s/p fall on blood thinners. Lyme titer came back positiveTo 5.6. This was discussed with Jeyson Kelley MD, who was not really impressed with the results and commented this could be an old true positive considering that the patient is an epidemic area for Lyme. Edvin blot has been sent by the lab and will follow-up with the final results of the result. These results are expected later today or tomorow. If the IgM for the Lyme is positive again consult with the ID and recommendations Problem List: 1. Afib 2. Hematoma 3. Delirium 4. Hip hematoma, left Pain Ratin Pain Location: no pain Pain Goal: Remain pain free Pain Plan: c/w current management Tomorrow's Labs & Rationales: f/u labs DVT/Prophylaxis: holding will resume 07/03 as per recommendations PIPPA HODGE MD 07/02/16 1537: Attending Review Statement Attending Statement Attending Statement: examined this patient, discuss w/resident/PA/BENEFITS PROCESSOR, agreed w/resident/PA/BENEFITS PROCESSOR, discussed with family, reviewed EMR data (avail), discussed with nursing, discussed with case mgmt, reviewed images, amended to note Attending Assessment/Plan: The patient was seen and discussed with house staff, CRM, nursing and family. The patient was much more alert and conversing appropriately at table in break room. CT of head negative. Lyme Western Blot will not be back for 1-2 days, however agree with ID that this would not be typical of Neuro-Lyme. Still requiring assist of 2 for ambulation/mobility. Discussed with family and prefer to take home with 24 hour care. There will be a male from the family with nursing scheduler. Home PT/OT/Nursing evaluations.
--- NOTE | 2016-07-02 11:48 | CT SCAN REPORT ---
EXAMINATION: CT HEAD WITHOUT CONTRAST CLINICAL INFORMATION: 89-year-old male receiving Coumadin therapy for atrial fibrillation. Status post fall. COMPARISON: Head CT from 01/26/2012. TECHNIQUE: Contiguous axial imaging was performed from the skull base to vertex without intravenous administration of contrast. DLP: 672 mGy-cm FINDINGS: No evidence of acute intracranial hemorrhage, extra-axial fluid collection, focal mass effect or midline shift. There is atherosclerotic calcification of vertebral arteries and carotid siphons. Again noted are patchy areas of decreased attenuation within supratentorial white matter compatible with chronic, moderate microangiopathy. No evidence of an acute major vascular territory infarction. There is chronic atrophy of cerebral and cerebellar hemispheres associated with symmetric prominence of the ventricles, sulci and cisterns. The calvarium is intact. There are mucus retention cysts of the right and left sphenoid sinus. No acute intraorbital pathology. Again noted is the right-sided scleral buckle and high density material within the right globe. A few bilateral mastoid air cells are opacified. There is [id number] osteoarthrosis of the left temporomandibular joint. IMPRESSION: Chronic cerebral atrophy and moderate small vessel ischemic changes. No acute intracranial pathology compared to 01/26/2012.
[2016-07-02 14:30] VITALS: BP 126/77
--- NOTE | 2016-07-02 16:07 | PN- Psychiatry ---
Assessment/Plan Impression: Identifying Info: 89-year-old male evaluated by psychiatric service for acute confusional state. SUBJECTIVE "Doing Alright." Patient reports difficulty word finding and asks for recommendations to help preserve his memory as well as keep from having a delirium happen again. Brief ROS Gait: unobserved, interviewed in wheelchair Sleep: Adequate Appetite: Adequate OBJECTIVE Patient was interviewed with permission with family nearby sitting eating dinner out on unit. Mental Status Exam Presentation/Appearance: Cooperative with evaluation. Calm. Well-groomed dressed in street clothes. Orientation: Oriented to self and place, able to name year but not date Sensorium: Awake and alert Eye contact: Appropriate Affect: Full range congruent with stated mood Mood: "Alright" Depression: Denies Anxiety: Denies Thought Content: - Denies SI/HI, AH/VH, PI. States and also believes they will not kill themselves. - Denies Hopeless/Helpless Thoughts Thought Process: Linear, some moments of derailment Speech: Normal tone and rate Judgment: Intact Insight: Intact Cognition: Memory: Short-term deficits observed and endorsed. Long-term appears to be more intact. Attention/Concentration: Fair, patient able to count backwards from 10, and spell "world" forwards but not backwards "dlorw" ASSESSMENT The patient's delirium appears to have resolved. He is concerned about memory loss and would benefit from follow-up care from a neurologist on an outpatient basis. Differential diagnosis Delirium due to multiple eitologies, resolved r/o Nightmare disorder Suggestion: 1. Family educated on delirium prevention including adequate sleep, adequate pain control, as well as avoiding high-risk medications including anticholinergics, benzodiazepines, and opiates. 2. Please continue psychotropics as currently ordered on dc including nightly and PRN trazodone. 3. Patient and family encouraged to talk to the primary care provider about potential neurology referral for memory issues. 4. Patient may follow up with psychiatry on an outpatient basis if he desires. 5. Patient is cleared from a psychiatric perspective at this time, we would be happy to reconsult as needed. Thank you for including psychiatry in this case we are signing off. Rupert Raymundo APRN, pager [phone] Subjective Subjective: . Objective Last 24 Hrs of Vital Signs/I&O Vital Signs Date Time Temp Pulse Resp B/P Pulse O2 O2 Flow FiO2 Ox Delivery Rate 03/01 1430 97.5 99 20 126/77 94 Room Air 07/02 0927 112/60 07/02 0753 97.3 67 20 112/60 95 Room Air 07/02 0047 98.2 90 20 110/70 96 Room Air Intake & Output 07/02 1600 07/02 0800 07/02 0000 Intake Total 650 360 Output Total 400 Balance 650 -400 360 Intake, Oral 650 360 Output, Urine 400
== END 2016-07-02 16:00 | disposition home health service (06) | DRG 605 ==
LOC: ENRESERVDT → ENRESERVTM → ERH 08:39 → 2NB 13:12 → ERHI 13:12 → 2NB 14:31
PROVIDERS: Internal Medicine; Internal Medicine Nephrology; Physician Assistant; Student in an Organized Health Care Education/Training Program; ADMIT Internal Medicine
DX: S70.02XA Contusion of left hip, initial encounter (principal); F05 Delirium due to known physiological condition; I48.91 Unspecified atrial fibrillation; D62 Acute posthemorrhagic anemia; W00.0XXA Fall on same level due to ice and snow, initial encounter; Y92.9 Unspecified place or not applicable; I25.10 Atherosclerotic heart disease of native coronary artery without angina pectoris; I10 Essential (primary) hypertension; Z95.1 Presence of aortocoronary bypass graft; E78.5 Hyperlipidemia, unspecified; Z95.0 Presence of cardiac pacemaker; Z79.01 Long term (current) use of anticoagulants
CPT/HCPCS: 2NBP; 2NBSP; 6040; 86618; 36415; 73502-LT; 81001; 93005; 93010; 96374; 96375; 96376; 97110-GP; 97116-GO; 97116-GP; 97162-GP; 97530-GO; 97530-GP; 99232; A9561; G0378; J0131; J1630